=== PATIENT | male | born 1945 | race Caucasian/White ===

== ENCOUNTER → 2019-03-18 | Outpatient (CLI) | payer MEDICARE, OTHER ==
--- NOTE | 2019-03-19 11:17 | ECHOF ---
Referral Reason:I10 Hypertension MEASUREMENTS -------- HEIGHT: 182.9 cm WEIGHT: 95.3 kg BP: RVIDd: 3.4 cm (< 3.3) IVSd: 1.0 cm (0.6 - 1.1) LVIDd: 4.4 cm (3.9 - 5.3) LVPWd: 1.2 cm (0.6 - 1.1) IVSs: 1.4 cm LVIDs: 2.7 cm LVPWs: 1.6 cm LAESV Index (A-L): 23.60 ml/m Ao Diam: 2.8 cm (2.0 - 3.7) AV Cusp: 2.0 cm (1.5 - 2.6) LA Diam: 4.4 cm (2.7 - 3.8) MV EXCURSION: 20.824 mm (> 18.000) MV EF SLOPE: 173 mm/s (70 - 150) EPSS: 0.3 cm MV E Momo: 1.41 m/s MV DecT: 242 ms MV A Momo: 0.41 m/s MV E/A Ratio: 3.40 RAP: 5.00 mmHg RVSP: 34.50 mmHg FINDINGS -------- Paced rhythm. Pacerwire seen in RV and RA. This was a technically good study. Pt had previous cabg The left ventricular size is normal. There is borderline concentric left ventricular hypertrophy. Overall left ventricular systolic function is low-normal with, an EF between 50 - 55 %. There is p aradoxical/dysynergic septal motion consistent with post-operative status. The right ventricle is mildly enlarged. Normal LA size by volume 22+/-6 ml/m2. The right atrial size is normal. Aortic valve is trileaflet and is mildly thickened. The mitral valve is normal. The mitral valve leaflets are mildly thickened. Mild mitral annular c alcification present. Mild mitral regurgitation is present. Moderate tricuspid regurgitation present. Right ventricular systolic pressure is normal at < 35 mmH g. There is no pulmonic regurgitation present. The aortic root size is normal. Normal inferior vena cava with normal inspiratory collapse consistent with estimated right atrial pre ssure of 5 mmHg. All pulmonary veins appear normal. CONCLUSIONS -------- 1. Paced rhythm. 2. Pacerwire seen in RV and RA. 3. This was a technically good study. 4. Pt had previous cabg 5. The left ventricular size is normal. 6. There is borderline concentric left ventricular hypertrophy. 7. Overall left ventricular systolic function is low-normal with, an EF between 50 - 55 %. 8. There is paradoxical/dysynergic septal motion consistent with post-operative status. 9. The right ventricle is mildly enlarged. 10. Normal LA size by volume 22+/-6 ml/m2. 11. The right atrial size is normal. 12. Aortic valve is trileaflet and is mildly thickened. 13. The mitral valve is normal. 14. The mitral valve leaflets are mildly thickened. 15. Mild mitral annular calcification present. 16. Mild mitral regurgitation is present. 17. Moderate tricuspid regurgitation present. 18. Right ventricular systolic pressure is normal at < 35 mmHg. 19. There is no pulmonic regurgitation present. 20. The aortic root size is normal. 21. Normal inferior vena cava with normal inspiratory collapse consistent with estimated right atrial pressure of 5 mmHg. 22. All pulmonary veins appear normal. [employer] SPECIALIST: Shayla Jacobson RDCS
== END | disposition home or self-care (01) ==
LOC: RADECHMAIN 15:24
PROVIDERS: ATTEND Family Medicine
DX: I11.9 Hypertensive heart disease without heart failure (principal); I08.1 Rheumatic disorders of both mitral and tricuspid valves; Z95.1 Presence of aortocoronary bypass graft
CPT/HCPCS: 93306

== ENCOUNTER 2021-05-12 07:12 | Day surgery (SDC) | payer MEDICARE ==
[2021-05-06 15:52] VITALS: BMI 30.1
[~2021-05-12 07:12] MED LIST: LACTATED RINGERS 1,000 ML IV SCH; LIDOCAINE 1% (10MG/ML) FOR IV START INTRADERMA PRN
[2021-05-12 07:47] LABS: Glucose,Whole Blood 168 mg/dL (75-99)
[2021-05-12 07:50] VITALS: TEMP 97
[2021-05-12] MEDS ORDERED: LIDOCAINE 1% INJ 10MG/ML (20 ML MDV) ONE (08:13)
[2021-05-12] MEDS ORDERED: PROPOFOL 10 MG/ML 20 ML VIAL IV ONE (08:13)
--- NOTE | 2021-05-12 08:19 | P.GSHP ---
History of Present Illness H&P Date: 05/12/21 CHIEF COMPLAINT: Colon screen HISTORY OF PRESENT ILLNESS: The patient is a 76-year-old male with prior history of colonoscopy presents for comorbidities of chronic anticoagulation, hypertensive heart disease, diabetes type 2 [id number] who presents first time in consultation for colonoscopy. Last colonoscopy was over 10 years ago. Lower endoscopy was offered for further evaluation and management. PAST MEDICAL HISTORY: Please see list. PAST SURGICAL HISTORY: Please see list. MEDICATIONS: Please see list. ALLERGIES: Please see list. SOCIAL HISTORY: No illicit drug use FAMILY HISTORY: No reports of Crohn disease or ulcerative colitis. REVIEW OF ORGAN SYSTEMS: CONSTITUTIONAL: Denies any fever or chills. Denies recent weight loss or weight gain. HEENT: Denies any trouble with vision, hearing or nosebleeds. No difficulty swallowing. LYMPHATIC: The patient denies any lumps and bumps around the neck. ENDOCRINE: Denies any thyroid disorders. Has diabetes type 2, not on medications. RESPIRATORY: Denies pneumonia. Denies any troubles with breathing or dyspnea on exertion. CARDIOVASCULAR: Has hypertensive heart disease including chronic anticoagulation. Has atrial fibrillation and has history of atrial flutter. GASTROINTESTINAL: Denies heart burn, constipation or bright red blood per rectum. GENITOURINARY: Denies any blood in urine or increased urinary frequency. MUSCULOSKELETAL: Denies any back pain, stiffness, joint arthritis. NEUROLOGIC: Denies any numbness or tingling along the distal extremities. No seizure disorders or headaches. Past history of cerebrovascular accident. PSYCHIATRIC: Denies depression or suidical ideation. HEMATOLOGIC: Denies any abnormal bleeding or bruising. BREASTS: Denies any breast lumps, pain or nipple discharge. PHYSICAL EXAM: VITAL SIGNS: Stable GENERAL: Well-developed pleasant in no acute distress. HEENT: No scleral icterus. Extraocular movements grossly intact. Moist buccal mucosa. NECK: Supple without lymphadenopathy. CHEST: Unlabored respirations. Equal bilateral excursions. CARDIOVASCULAR: Regular rate and rhythm. Distal 2+ pulses. ABDOMEN: Soft, nontender, nondistended. MUSCULOSKELETAL: No clubbing, cyanosis, or edema. PSYCH: Alert and oriented to person place and time SKIN: Well perfused. Good skin turgor. ASSESSMENT: 1. Colonoscopy screening 2. Chronic anticoagulation 3. Hypertensive heart disease PLAN: 1. Colonoscopy per screening guidelines however patient high risk due to chronic and circulation pre-existing heart disease Past Medical History Past Medical History: Coronary Artery Disease (CAD), CVA/TIA, Hyperlipidemia, Sleep Apnea/CPAP/BIPAP Additional Past Medical History / Comment(s): stroke 15 yrs ago-no residual effects, no cpap used, History of Any Multi-Drug Resistant Organisms: None Reported Past Surgical History: Coronary Bypass/CABG, Orthopedic Surgery, Pacemaker, Tonsillectomy Additional Past Surgical History / Comment(s): left shoulder surgery, CABG 15 yr ago, evelyn cataracts Past Anesthesia/Blood Transfusion Reactions: No Reported Reaction Type of Cardiac Device: Permanent Pacemaker Device Placement Date:: Smoking Status: Former smoker - Past Family History Mother Family Medical History: No Reported History Medications and Allergies Home Medications Medication Instructions Recorded Confirmed Type Canagliflozin [Invokana] 300 mg PO HS 05/06/21 05/12/21 History Metoprolol Succinate [Toprol XL] 25 mg PO 1200 05/06/21 05/12/21 History Metoprolol Succinate [Toprol XL] 50 mg PO HS 05/06/21 05/12/21 History Rivaroxaban [Xarelto] 20 mg PO HS 05/06/21 05/12/21 History Simvastatin [Zocor] 40 mg PO HS 05/06/21 05/12/21 History Allergies Allergy/AdvReac Type Severity Reaction Status Date / Time No Known Allergies Allergy Verified 05/12/21 07:28 Surgical - Exam Vital Signs Temp Pulse Resp BP Pulse Ox 97.0 F L 60 16 130/64 100 05/12/21 07:49 05/12/21 07:49 05/12/21 07:49 05/12/21 07:49 05/12/21 07:49 Results - Labs Abnormal Lab Results - Last 24 Hours (Table) 05/12/21 Range/Units 07:42 POC Glucose (mg/dL) 168 H (75-99) mg/dL
--- NOTE | 2021-05-12 08:42 | P.PCN ---
Date of Procedure: 05/12/21 Description of Procedure: PREOPERATIVE DIAGNOSIS: Colonoscopy screening POSTOPERATIVE DIAGNOSIS: Colonoscopy screening Tubular adenoma ascending colon Tubular adenoma ascending colon Sigmoid diverticulosis Internal hemorrhoids, grade 2 OPERATION: Colonoscopy to the ileocecal valve and appendiceal orifice, cecum Colonoscopy with hot snare polypectomy SURGEON: Aliyah Moran MD. ANESTHESIA: MAC. INDICATIONS: The patient is an 76-year-old male who presents for colonoscopy screening. Last colonoscopy over 10 years ago. Benefits and risks were described and informed consent was obtained. DESCRIPTION OF PROCEDURE: The patient had undergone Sutab prep. The patient had been brought into the operating room and laid in the left lateral decubitus position. After adequate intravenous sedation, the rectum was examined with 2% lidocaine jelly. The prostate fossa was enlarged. External hemorrhoids were encountered. The rectal tone was within normal limits. No lesions were palpated in the rectal vault. An Olympus colonoscope was advanced until the cecum, ileocecal valve and appendiceal orifice were clearly viewed. The prep was fair. Sigmoid diverticulosis was encountered. Colonic polyps were found and removed. No evidence of focal colitis was found. Retroflexion of the scope demonstrated grade 2 internal hemorrhoids without active bleeding or inflammation. The colon was desufflated. The patient had tolerated the procedure well. Withdrawal time was over 6 minutes. FINDINGS: Aronchick preparation quality scale 3 (1-5) Internal hemorrhoids, grade 2 External hemorrhoids, grade 2. No arteriovenous malformations. Sigmoid diverticulosis Removal of 3 polyps: - Snare polypectomy 60 cm from the anal verge, 8 mm tubulovillous adenoma polyp. - Snare polypectomy proximal ascending colon, 4 mm flat villous adenoma polyp. - Snare polypectomy distal ascending colon, 5 mm flat villous adenoma polyp. No focal colitis. RECOMMENDATIONS: Given severity of tubular adenomas, recommend repeat colonoscopy in 3 years, 2023 including 3 day bowel prep Plan - Discharge Summary New Discharge Prescriptions: Continue Simvastatin [Zocor] 40 mg PO HS Rivaroxaban [Xarelto] 20 mg PO HS Metoprolol Succinate [Toprol XL] 25 mg PO 1200 Canagliflozin [Invokana] 300 mg PO HS Metoprolol Succinate [Toprol XL] 50 mg PO HS Discharge Medication List Canagliflozin [Invokana] 300 mg PO HS 05/06/21 [History] Metoprolol Succinate [Toprol XL] 25 mg PO 1200 05/06/21 [History] Metoprolol Succinate [Toprol XL] 50 mg PO HS 05/06/21 [History] Rivaroxaban [Xarelto] 20 mg PO HS 05/06/21 [History] Simvastatin [Zocor] 40 mg PO HS 05/06/21 [History] Follow up Appointment(s)/Referral(s): Aliyah Moran MD [STAFF PHYSICIAN] - As Needed Patient Instructions/Handouts: Colorectal Polyps (GEN), Diverticulosis Diet (GEN), Diverticulosis (DC) Activity/Diet/Wound Care/Special Instructions: Resume blood thinner 05/15/2021 on Monday. Repeat colonoscopy 3 years, 2023. Recommend at least 3 day bowel prep. Discharge Disposition: HOME SELF-CARE
[2021-05-12 08:55] VITALS: RESP 16
[2021-05-12 09:13] VITALS: BP 118/65; PULSE 60
== END 2021-05-12 09:23 | disposition home or self-care (01) ==
LOC: ORWHC2ENDO 07:12
PROVIDERS: ATTEND Surgery Plastic and Reconstructive Surgery
DX: Z12.11 Encounter for screening for malignant neoplasm of colon (principal); K57.90 Diverticulosis of intestine, part unspecified, without perforation or abscess without bleeding; K64.1 Second degree hemorrhoids; Z86.010 Personal history of colon polyps; D12.2 Benign neoplasm of ascending colon; I25.10 Atherosclerotic heart disease of native coronary artery without angina pectoris; E78.5 Hyperlipidemia, unspecified; Z95.1 Presence of aortocoronary bypass graft; Z95.0 Presence of cardiac pacemaker; Z86.73 Personal history of transient ischemic attack (TIA), and cerebral infarction without residual deficits; Z87.891 Personal history of nicotine dependence; Z79.899 Other long term (current) drug therapy; Z79.01 Long term (current) use of anticoagulants; G47.33 Obstructive sleep apnea (adult) (pediatric)
CPT/HCPCS: 88305; 45385; J2001; J2704

== ENCOUNTER → 2021-10-26 | Outpatient (CLI) | payer MEDICARE ==
[2021-10-27 13:28] LABS: Coronavirus SARS CoV-2 Not Detected (Not Detected)
== END | disposition home or self-care (01) ==
LOC: LABWHC1 14:20
PROVIDERS: ATTEND Family Medicine
DX: Z20.822 Contact with and (suspected) exposure to COVID-19 (principal); J06.9 Acute upper respiratory infection, unspecified
CPT/HCPCS: 87502; U0003; C9803

== ENCOUNTER 2021-12-13 11:58 | Day surgery (SDC) | payer MEDICARE ==
[2021-12-09 09:52] VITALS: BMI 27.5
[~2021-12-13 11:58] MED LIST changes: -LIDOCAINE 1% (10MG/ML) FOR IV START INTRADERMA PRN
[2021-12-13 12:15] VITALS: TEMP 97.9
[2021-12-13 12:34] LABS: Glucose,Whole Blood 139 mg/dL (75-99)
[2021-12-13] MEDS ORDERED: PROPOFOL 10 MG/ML 20 ML VIAL IV ONE (12:34)
[2021-12-13 13:34] VITALS: BP 109/63; PULSE 60; RESP 18
[2021-12-13 14:13] LABS: Anisocytosis Slight; HCT 28.3 % (39.0-53.0); HGB 8.7 gm/dL (13.0-17.5); Hypochromasia Marked; MCH 35.6 pg (25.0-35.0); MCHC 30.9 g/dL (31.0-37.0); MCV 115.2 fL (80.0-100.0); Macrocytosis Marked; Platelet Count 111 k/uL (150-450); Poikilocytosis Moderate; RBC 2.45 m/uL (4.30-5.90); RDW 19.7 % (11.5-15.5); Reticulocyte % 3.7 % (0.5-2.0)
[2021-12-13 14:51] LABS: WBC 1.2 k/uL (3.8-10.6)
[2021-12-13 15:36] LABS: Neutrophils % (M) 18 %
[2021-12-13 15:37] LABS: Eosinophils # (M) 0.04 k/uL (0-0.7); Lymphocytes # (M) 0.86 k/uL (1.0-4.8); Monocytes # (M) 0.08 k/uL (0-1.0); Neutrophils # (M) 0.22 k/uL (1.3-7.7); Nucleated Red Blood Cells 1 /100 WBC (0-0); Total Cells Counted 100
[2021-12-13 15:40] LABS: Polychromasia Present
--- NOTE | 2021-12-13 18:22 | PCN ---
PROCEDURE NOTE DATE OF SERVICE: December 13, 2021. PROCEDURE: Bone marrow aspirate and biopsy. INDICATION: Severe pancytopenia, rule out ACUTE MYELOID LEUKEMIA. DESCRIPTION OF PROCEDURE: After obtaining consent from the patient, the procedure was performed in the endoscopy suite under general anesthesia performed by anesthesia team. The patient was put in the left lateral decubitus position. The right posterior superior iliac crest was localized. Skin was cleansed with ChloraPrep, all sterile procedures were followed. 2% Xylocaine was used for local anesthetic. Monoject needle inserted 15 mL of aspirate and about 2 cm core biopsy was obtained without any difficulties. Pressure applied afterwards. There was negligible blood loss. Patient tolerated procedure very well without any immediate complications. MMODL / IJN: [id number] /
== END 2021-12-13 14:01 | disposition home or self-care (01) ==
LOC: OR 11:58
PROVIDERS: ATTEND Internal Medicine Hematology & Oncology
DX: D64.89 Other specified anemias (principal); D75.9 Disease of blood and blood-forming organs, unspecified; D69.6 Thrombocytopenia, unspecified; E11.9 Type 2 diabetes mellitus without complications; E78.5 Hyperlipidemia, unspecified; Z98.49 Cataract extraction status, unspecified eye; Z95.0 Presence of cardiac pacemaker; Z95.1 Presence of aortocoronary bypass graft; Z98.890 Other specified postprocedural states; Z86.19 Personal history of other infectious and parasitic diseases; Z79.01 Long term (current) use of anticoagulants; Z79.899 Other long term (current) drug therapy; Z87.891 Personal history of nicotine dependence; I25.10 Atherosclerotic heart disease of native coronary artery without angina pectoris; I10 Essential (primary) hypertension; G47.33 Obstructive sleep apnea (adult) (pediatric); Z86.73 Personal history of transient ischemic attack (TIA), and cerebral infarction without residual deficits
CPT/HCPCS: 85025; 85045; 38222; J2704

== ENCOUNTER → 2022-04-08 | Outpatient (CLI) | payer MEDICARE ==
--- NOTE | 2022-04-10 11:00 | CA ---
Transthoracic Echo Report Name: Mason Pena Age: 77 Gender: M : 1945 Exam Date: 04/08/2022 13:52 Exam Location: [facility] Ht (in): 72 Wt (lb): 200 Ordering Physician: Mason Barnes MD Attending/Referring Phys: Regional Medical Director Summer Doyle RDCS Procedure CPT: Indications: I25.10 ATHSCL HEART DISEASE OF [place] RESERVATION CORONARY ART Cardiac Hx: Technical Quality: Good Contrast 1: Total Dose (mL): Contrast 2: Total Dose (mL): MEASUREMENTS (Male / Female) Normal Values 2D ECHO LV Diastolic Diameter PLAX 4.3 cm 4.2 - 5.9 / 3.9 - 5.3 cm LV Systolic Diameter PLAX 3.6 cm IVS Diastolic Thickness 0.9 cm 0.6 - 1.0 / 0.6 - 0.9 cm LVPW Diastolic Thickness 1.7 cm 0.6 - 1.0 / 0.6 - 0.9 cm LV Relative Wall Thickness 0.6 RV Internal Dim ED PLAX 3.6 cm LA Systolic Diameter LX 6.1 cm 3.0 - 4.0 / 2.7 - 3.8 cm LA Volume 112.0 cm??? 18 - 58 / 22 - 52 cm??? M-MODE Aortic Root Diameter MM 3.0 cm LA Systolic Diameter MM 5.4 cm LA Ao Ratio MM 1.8 MV E Point Septal Separation 0.3 cm AV Cusp Separation MM 1.5 cm DOPPLER MV Area PHT 5.1 cm??? Mitral E Point Velocity 136.3 cm/s Mitral A Point Velocity 58.2 cm/s Mitral E to A Ratio 2.3 MV Deceleration Time 147.8 ms MV E' Velocity 7.4 cm/s Mitral E to MV E' Ratio 18.3 TR Peak Velocity 322.0 cm/s TR Peak Gradient 41.5 mmHg Right Ventricular Systolic Press 46.5 mmHg FINDINGS Left Ventricle Normal left ventricular size, wall thickness, systolic function with no obvious regional wall motion abnormalities. Left ventricular ejection fraction is estimated to be low normal at 50% Right Ventricle The right ventricle is normal in size and function. Moderate pulmonary hypertension. Right Atrium The right atrium is normal in size. Left Atrium Severely increased left atrial diameter. Severely increased left atrial volume. Moderately increased left atrial area. Mitral Valve . structurally normal mitral valve. [id number] mitral regurgitation. Aortic Valve Trileaflet aortic valve. Aortic valve sclerosis. Tricuspid Valve Structurally normal tricuspid valve without significant stenosis. Pulmonic Valve Structurally normal pulmonic valve without significant stenosis. There is no pulmonic regurgitation. Pericardium Normal pericardium without effusion. Aorta Normal aortic root dimension. CONCLUSIONS Low-normal left ventricular systolic function with EF of 50% Moderate to severe mitral regurgitation Moderate to severe tricuspid regurgitation Previewed by: Dr. Nba Quevedo MD (Electronically Signed) Final Date: 10 April 2022 10:59
== END | disposition home or self-care (01) ==
LOC: RADECHMAIN 13:41
PROVIDERS: ATTEND Internal Medicine
DX: I08.1 Rheumatic disorders of both mitral and tricuspid valves (principal); I25.10 Atherosclerotic heart disease of native coronary artery without angina pectoris
CPT/HCPCS: 93306

== ENCOUNTER 2022-05-10 09:02 | Emergency (ER) | payer MEDICARE ==
[2022-05-10] MEDS ORDERED: SODIUM CHLORIDE 0.9% 1,000 ML IV STA (10:11)
--- NOTE | 2022-05-10 10:18 | ED ---
General Adult HPI - General Chief complaint: Recheck/Abnormal Lab/Rx Stated complaint: Sent for blood infusion,Abnormal labs Time Seen by Provider: 05/10/22 10:05 Source: patient, RN notes reviewed, old records reviewed Mode of arrival: ambulatory Limitations: no limitations - History of Present Illness Initial comments: This is a 77-year-old male, alert and oriented 4 that presents with his sent by doctor for hemoglobin of 4.7. Patient does have a history of myelodysplastic syndrome diagnosed in December this year. Was going through testing for bone marrow transplant however due to his low hemoglobin was sent to the emergency room. He does have some shortness of breath but denies any chest pain. No fevers, no nausea, vomiting or diarrhea. Denies any rectal bleeding. Patient does have history of coronary artery disease with CABG, pacemaker, CVA, NIDDM and hypertension. He does take Xarelto. -: days(s) Severity scale (1-10): 0 Associated Symptoms: denies other symptoms Treatments Prior to Arrival: other (labs) - Related Data Home Medications Medication Instructions Recorded Confirmed Canagliflozin [Invokana] 300 mg PO HS 05/06/21 12/09/21 Metoprolol Succinate [Toprol XL] 25 mg PO 1200 05/06/21 12/09/21 Metoprolol Succinate [Toprol XL] 50 mg PO HS 05/06/21 12/09/21 Rivaroxaban [Xarelto] 20 mg PO HS 05/06/21 12/09/21 Simvastatin [Zocor] 40 mg PO HS 05/06/21 12/09/21 Dulaglutide [Trulicity] 0.75 mg SQ DENNIS 12/09/21 12/09/21 Dulaglutide [Trulicity] 0.75 mg SQ DENNIS 12/09/21 12/09/21 Allergies Allergy/AdvReac Type Severity Reaction Status Date / Time No Known Allergies Allergy Verified 05/10/22 09:12 Review of Systems ROS Statement: Those systems with pertinent positive or pertinent negative responses have been documented in the HPI. ROS Other: All systems not noted in ROS Statement are negative. Past Medical History Past Medical History: Coronary Artery Disease (CAD), CVA/TIA, Hyperlipidemia, Sleep Apnea/CPAP/BIPAP Additional Past Medical History / Comment(s): MDS History of Any Multi-Drug Resistant Organisms: None Reported Past Surgical History: Coronary Bypass/CABG, Orthopedic Surgery, Pacemaker, Tonsillectomy Additional Past Surgical History / Comment(s): left shoulder surgery, CABG 15 yr ago, evelyn cataracts Past Anesthesia/Blood Transfusion Reactions: No Reported Reaction Type of Cardiac Device: Permanent Pacemaker Device Placement Date:: Past Psychological History: No Psychological Hx Reported Smoking Status: Former smoker Past Alcohol Use History: Rare Past Drug Use History: None Reported - Past Family History Mother Family Medical History: No Reported History General Exam Limitations: no limitations General appearance: alert, in no apparent distress Head exam: Present: atraumatic Eye exam: Present: PERRL, other (Pale conjunctiva). Absent: conjunctival injection, periorbital swelling, periorbital tenderness ENT exam: Present: mucous membranes moist Neck exam: Present: normal inspection, full ROM. Absent: tenderness, meningismus Respiratory exam: Present: normal lung sounds bilaterally. Absent: respiratory distress, wheezes, rales, rhonchi, stridor, chest wall tenderness, accessory muscle use, decreased breath sounds Cardiovascular Exam: Present: regular rate GI/Abdominal exam: Present: soft. Absent: distended, tenderness Rectal exam: Present: normal rectal tone. Absent: black stool, bloody stool, mass, tenderness Extremities exam: Present: full ROM, normal capillary refill, pedal edema (Bilateral lower extremity). Absent: calf tenderness Left Lower Leg exam: Present: swelling, abrasion. Absent: Homans' sign Ankle exam: Present: swelling Foot/Toe exam: Present: swelling Neurovascular tendon exam: Absent: abnormal cap refill, extremity cold to touch, pallor, foot drop Right Lower Leg exam: Present: tenderness, swelling, abrasion. Absent: Homans' sign Ankle exam: Present: swelling Foot/Toe exam: Present: swelling Neurovascular tendon exam: Absent: abnormal cap refill, extremity cold to touch, foot drop Back exam: Present: normal inspection. Absent: tenderness, CVA tenderness (R), CVA tenderness (L), rash noted Neurological exam: Present: alert, oriented X3 Psychiatric exam: Present: normal affect, normal mood Skin exam: Present: warm, dry, pallor. Absent: cyanosis, diaphoretic Course Vital Signs 05/10/22 05/10/22 05/10/22 09:09 12:15 12:25 Temperature 97.6 F 98.8 F 98.3 F Pulse Rate 62 60 62 Respiratory 20 18 18 Rate Blood Pressure 104/50 90/44 97/47 O2 Sat by Pulse 97 95 Oximetry 05/10/22 12:55 Temperature 98.0 F Pulse Rate 77 Respiratory 18 Rate Blood Pressure 102/63 O2 Sat by Pulse Oximetry EKG Findings - CO, Pacemaker, Normal: Pacemaker: ventricular pacing w/capture (except when refractory) (Rate 64, QRS 0.174, QTC 0.525) Medical Decision Making - Medical Decision Making Patient sent by PCP for low hemoglobin. Hemoglobin is 4.9 hematocrit 17. Guiac positive. White blood cell count is 2.4 and platelet count is 74. Patient does have an history of MDS, and is seeing heme/oncology through [facility]. Hx: CAD, CABG, CVA, pacer. Takes Xeralto daily. He was given 1 unit of packed RBCs. He was transferred [facility] for GIB, accepted by Dr. Valderrama. VSS. Patient and agreeable to this plan of care. - Lab Data Result diagrams: 05/10/22 10:34 05/10/22 10:34 Lab Results 05/10/22 05/10/22 05/10/22 Range/Units 10:20 10:34 10:34 WBC 2.4 L (3.8-10.6) k/uL RBC 1.43 L (4.30-5.90) m/uL Hgb 4.9 L* (13.0-17.5) gm/dL Hct 17.0 L* (39.0-53.0) % MCV 118.7 H (80.0-100.0) fL MCH 34.0 (25.0-35.0) pg MCHC 28.6 L (31.0-37.0) g/dL RDW 22.2 H (11.5-15.5) % Plt Count 74 L (150-450) k/uL MPV 10.4 Neutrophils % (Manual) 39 % Band Neuts % (Manual) 1 % Lymphocytes % (Manual) 56 % Monocytes % (Manual) 1 % Eosinophils % (Manual) 1 % Metamyelocytes % 2 % Myelocytes % 3 % Neutrophils # (Manual) 0.90 L (1.3-7.7) k/uL Lymphocytes # (Manual) 1.34 (1.0-4.8) k/uL Monocytes # (Manual) 0.02 (0-1.0) k/uL Eosinophils # (Manual) 0.02 (0-0.7) k/uL Metamyelocytes # (Man) 0.05 H (0) k/uL Myelocytes # (Manual) 0.07 H (0) k/uL Nucleated RBCs 18 H (0-0) /100 WBC Manual Slide Review Performed Large Platelets Present Polychromasia Present Hypochromasia Marked Poikilocytosis Marked Anisocytosis Moderate Macrocytosis Marked A Stomatocytes Present PT 12.8 H (9.0-12.0) sec INR 1.2 H (<1.2) APTT 27.1 (22.0-30.0) sec Sodium (137-145) mmol/L Potassium (3.5-5.1) mmol/L Chloride (98-107) mmol/L Carbon Dioxide (22-30) mmol/L Anion Gap mmol/L BUN (9-20) mg/dL Creatinine (0.66-1.25) mg/dL Est GFR (CKD-EPI)AfAm (>60 ml/min/1.73 sqM) Est GFR (CKD-EPI)NonAf (>60 ml/min/1.73 sqM) Glucose (74-99) mg/dL Calcium (8.4-10.2) mg/dL Magnesium (1.6-2.3) mg/dL Total Bilirubin (0.2-1.3) mg/dL AST (17-59) U/L ALT (4-49) U/L Alkaline Phosphatase (38-126) U/L Troponin I (0.000-0.034) ng/mL Total Protein (6.3-8.2) g/dL Albumin (3.5-5.0) g/dL Stool Occult Blood (Negative) Blood Type A Positive Blood Type Confirm Blood Type Recheck No Previous Record Bld Type Recheck Status CABO Indicated Antibody Screen NEGATIVE Crossmatch See Detail Spec Expiration Date 05/13/2022 - 231905/10/22 05/10/22 05/10/22 Range/Units 10:34 10:34 10:34 WBC (3.8-10.6) k/uL RBC (4.30-5.90) m/uL Hgb (13.0-17.5) gm/dL Hct (39.0-53.0) % MCV (80.0-100.0) fL MCH (25.0-35.0) pg MCHC (31.0-37.0) g/dL RDW (11.5-15.5) % Plt Count (150-450) k/uL MPV Neutrophils % (Manual) % Band Neuts % (Manual) % Lymphocytes % (Manual) % Monocytes % (Manual) % Eosinophils % (Manual) % Metamyelocytes % % Myelocytes % % Neutrophils # (Manual) (1.3-7.7) k/uL Lymphocytes # (Manual) (1.0-4.8) k/uL Monocytes # (Manual) (0-1.0) k/uL Eosinophils # (Manual) (0-0.7) k/uL Metamyelocytes # (Man) (0) k/uL Myelocytes # (Manual) (0) k/uL Nucleated RBCs (0-0) /100 WBC Manual Slide Review Large Platelets Polychromasia Hypochromasia Poikilocytosis Anisocytosis Macrocytosis Stomatocytes PT (9.0-12.0) sec INR (<1.2) APTT (22.0-30.0) sec Sodium 136 L (137-145) mmol/L Potassium 3.8 (3.5-5.1) mmol/L Chloride 100 (98-107) mmol/L Carbon Dioxide 29 (22-30) mmol/L Anion Gap 7 mmol/L BUN 24 H (9-20) mg/dL Creatinine 1.04 (0.66-1.25) mg/dL Est GFR (CKD-EPI)AfAm 81 (>60 ml/min/1.73 sqM) Est GFR (CKD-EPI)NonAf 70 (>60 ml/min/1.73 sqM) Glucose 141 H (74-99) mg/dL Calcium 8.2 L (8.4-10.2) mg/dL Magnesium 1.6 (1.6-2.3) mg/dL Total Bilirubin 2.8 H (0.2-1.3) mg/dL AST 32 (17-59) U/L ALT 16 (4-49) U/L Alkaline Phosphatase 70 (38-126) U/L Troponin I <0.012 (0.000-0.034) ng/mL Total Protein 5.9 L (6.3-8.2) g/dL Albumin 2.9 L (3.5-5.0) g/dL Stool Occult Blood Positive (Negative) Blood Type Blood Type Confirm Blood Type Recheck Bld Type Recheck Status Antibody Screen Crossmatch Spec Expiration Date 05/10/22 Range/Units 10:35 WBC (3.8-10.6) k/uL RBC (4.30-5.90) m/uL Hgb (13.0-17.5) gm/dL Hct (39.0-53.0) % MCV (80.0-100.0) fL MCH (25.0-35.0) pg MCHC (31.0-37.0) g/dL RDW (11.5-15.5) % Plt Count (150-450) k/uL MPV Neutrophils % (Manual) % Band Neuts % (Manual) % Lymphocytes % (Manual) % Monocytes % (Manual) % Eosinophils % (Manual) % Metamyelocytes % % Myelocytes % % Neutrophils # (Manual) (1.3-7.7) k/uL Lymphocytes # (Manual) (1.0-4.8) k/uL Monocytes # (Manual) (0-1.0) k/uL Eosinophils # (Manual) (0-0.7) k/uL Metamyelocytes # (Man) (0) k/uL Myelocytes # (Manual) (0) k/uL Nucleated RBCs (0-0) /100 WBC Manual Slide Review Large Platelets Polychromasia Hypochromasia Poikilocytosis Anisocytosis Macrocytosis Stomatocytes PT (9.0-12.0) sec INR (<1.2) APTT (22.0-30.0) sec Sodium (137-145) mmol/L Potassium (3.5-5.1) mmol/L Chloride (98-107) mmol/L Carbon Dioxide (22-30) mmol/L Anion Gap mmol/L BUN (9-20) mg/dL Creatinine (0.66-1.25) mg/dL Est GFR (CKD-EPI)AfAm (>60 ml/min/1.73 sqM) Est GFR (CKD-EPI)NonAf (>60 ml/min/1.73 sqM) Glucose (74-99) mg/dL Calcium (8.4-10.2) mg/dL Magnesium (1.6-2.3) mg/dL Total Bilirubin (0.2-1.3) mg/dL AST (17-59) U/L ALT (4-49) U/L Alkaline Phosphatase (38-126) U/L Troponin I (0.000-0.034) ng/mL Total Protein (6.3-8.2) g/dL Albumin (3.5-5.0) g/dL Stool Occult Blood (Negative) Blood Type Blood Type Confirm A Positive Blood Type Recheck Bld Type Recheck Status Antibody Screen Crossmatch Spec Expiration Date Critical Care Time Critical Care Time: Yes Total Critical Care Time: 34 (blood transfusion, GIB, transfer) Disposition Clinical Impression: Anemia, GIB (gastrointestinal bleeding), MDS (myelodysplastic syndrome) Disposition: OTHER INSTITUTION NOT DEFINED Condition: Good Referrals: Nathanael Ellis MD [Primary Care Provider] - 1-2 days Decision Date: 05/10/22 - Out of Hospital Transfer - Req. Specs Out of Hospital Transfer - Requested Specifics: Other [facility] ([facility])
[2022-05-10 10:54] LABS: Anisocytosis Moderate; Hypochromasia Marked; MCHC 28.6 g/dL (31.0-37.0); MCV 118.7 fL (80.0-100.0); Macrocytosis Marked; Mean Platelet Volume 10.4; Poikilocytosis Marked; RBC 1.43 m/uL (4.30-5.90); RDW 22.2 % (11.5-15.5)
[2022-05-10 10:57] LABS: HGB 4.9 gm/dL (13.0-17.5)
[2022-05-10 10:58] LABS: Albumin 2.9 g/dL (3.5-5.0); Calcium 8.2 mg/dL (8.4-10.2); Magnesium 1.6 mg/dL (1.6-2.3); Potassium 3.8 mmol/L (3.5-5.1); Total Bilirubin 2.8 mg/dL (0.2-1.3); Total Protein 5.9 g/dL (6.3-8.2)
[2022-05-10 10:59] LABS: INR 1.2 (<1.2); Partial Thromboplastin Time 27.1 sec (22.0-30.0); Prothrombin Time 12.8 sec (9.0-12.0)
[2022-05-10 11:06] LABS: Platelet Count 74 k/uL (150-450)
[2022-05-10 11:13] LABS: Band Neutrophils % 1 %; Eosinophils # (M) 0.02 k/uL (0-0.7); Lymphocytes # (M) 1.34 k/uL (1.0-4.8); Metamyelocytes # (M) 0.05 k/uL (0); Metamyelocytes % 2 %; Monocytes # (M) 0.02 k/uL (0-1.0); Myelocytes # (M) 0.07 k/uL (0); Myelocytes % 3 %; Neutrophils % (M) 39 %; Nucleated Red Blood Cells 18 /100 WBC (0-0); Total Cells Counted 200; WBC 2.4 k/uL (3.8-10.6)
--- NOTE | 2022-05-10 11:13 | XR ---
EXAMINATION TYPE: XR chest 2V DATE OF EXAM: 05/10/2022 COMPARISON: Chest x-ray April 22, 2022 HISTORY: Chest pain. TECHNIQUE: Frontal and lateral views of the chest are obtained. FINDINGS: There is chronic parenchymal change bilaterally redemonstrated with persistent small right pleural effusion. The cardiac silhouette size is stable and mildly enlarged with single lead pacema ker redemonstrated. The osseous structures are intact. IMPRESSION: Chronic changes and cardiomegaly with small right pleural effusion. No significant wan e from prior chest x-ray.
[2022-05-10 11:14] LABS: Large Platelets Present; Polychromasia Present; Stomatocytes Present
[2022-05-10 12:17] VITALS: RESP 18
[2022-05-11 09:55] VITALS: BP 102/63; PULSE 77; TEMP 98
== END 2022-05-10 17:00 | disposition short-term general hospital (02) ==
LOC: EC 09:02
DX: K92.2 Gastrointestinal hemorrhage, unspecified (principal); D46.9 Myelodysplastic syndrome, unspecified; I25.10 Atherosclerotic heart disease of native coronary artery without angina pectoris; Z86.73 Personal history of transient ischemic attack (TIA), and cerebral infarction without residual deficits; E78.5 Hyperlipidemia, unspecified; Z87.891 Personal history of nicotine dependence; Z79.899 Other long term (current) drug therapy
CPT/HCPCS: 36415; 93005; 86900; 86901; 80053; 83735; 84484; 85025; 85610; 85730; 86850; 86920; 82272; 71046; 99291; 96360; 96361 ×6; P9016

== ENCOUNTER 2022-06-29 16:17 | Inpatient (IN) | payer MEDICARE ==
[2022-06-29] MEDS ORDERED: DIPH,PERTUS(ACELL)TETVAC-LF 0.5 ML VIAL IM ONE (17:14)
[2022-06-29] MEDS ORDERED: SODIUM CHLORIDE 0.9% 500 ML 500 ML IV ONE (17:14)
--- NOTE | 2022-06-29 17:19 | ED ---
General Adult HPI - General Chief complaint: Fall Stated complaint: fall, weakness Time Seen by Provider: 06/29/22 16:26 Source: patient, family, EMS, RN notes reviewed, old records reviewed Mode of arrival: EMS Limitations: no limitations - History of Present Illness Initial comments: 77-year-old male history of MDS presenting syncopal. Patient's states he did feel somewhat lightheaded believes he was only momentarily unconscious.. He was brought in by paramedics with skin tear to the left upper extremity, abrasion to the forehead. Some pain in the right clavicle. Patient denies any specific complaints. No chest pain or palpitations. - Related Data Home Medications Medication Instructions Recorded Confirmed Canagliflozin [Invokana] 300 mg PO HS 05/06/21 12/09/21 Metoprolol Succinate [Toprol XL] 25 mg PO 1200 05/06/21 12/09/21 Metoprolol Succinate [Toprol XL] 50 mg PO HS 05/06/21 12/09/21 Rivaroxaban [Xarelto] 20 mg PO HS 05/06/21 12/09/21 Simvastatin [Zocor] 40 mg PO HS 05/06/21 12/09/21 Dulaglutide [Trulicity] 0.75 mg SQ DENNIS 12/09/21 12/09/21 Dulaglutide [Trulicity] 0.75 mg SQ DENNIS 12/09/21 12/09/21 Allergies Allergy/AdvReac Type Severity Reaction Status Date / Time No Known Allergies Allergy Verified 06/29/22 16:25 Review of Systems ROS Statement: Those systems with pertinent positive or pertinent negative responses have been documented in the HPI. ROS Other: All systems not noted in ROS Statement are negative. Past Medical History Past Medical History: Coronary Artery Disease (CAD), CVA/TIA, Hyperlipidemia, Sleep Apnea/CPAP/BIPAP Additional Past Medical History / Comment(s): MDS History of Any Multi-Drug Resistant Organisms: None Reported Past Surgical History: Coronary Bypass/CABG, Orthopedic Surgery, Pacemaker, Tonsillectomy Additional Past Surgical History / Comment(s): left shoulder surgery, CABG 15 yr ago, evelyn cataracts Past Anesthesia/Blood Transfusion Reactions: No Reported Reaction Type of Cardiac Device: Permanent Pacemaker Device Placement Date:: Past Psychological History: No Psychological Hx Reported Smoking Status: Former smoker Past Alcohol Use History: Rare Past Drug Use History: None Reported - Past Family History Mother Family Medical History: No Reported History General Exam Limitations: no limitations General appearance: alert, in no apparent distress Head exam: Present: other (Abrasion over the bridge of the nose and forehead) Eye exam: Present: PERRL Neck exam: Present: normal inspection. Absent: tenderness, meningismus Respiratory exam: Present: normal lung sounds bilaterally, other (Bony prominence over the midclavicular right side). Absent: respiratory distress Cardiovascular Exam: Present: regular rate, normal rhythm GI/Abdominal exam: Present: soft. Absent: distended, tenderness, guarding Extremities exam: Present: other (Multiple abrasions and skin tear to the left upper extremity) Neurological exam: Present: alert, oriented X3, CN II-XII intact. Absent: motor sensory deficit Psychiatric exam: Present: normal affect, normal mood Skin exam: Present: warm Course Vital Signs 06/29/22 16:19 Temperature 99.0 F Pulse Rate 60 Respiratory 16 Rate Blood Pressure 131/51 O2 Sat by Pulse 98 Oximetry EKG Findings - EKG Comments: EKG Findings:: EKG: Paced rhythm rate of 60, QRS duration 169, QTC 512 Medical Decision Making - Medical Decision Making 77-year-old male with myelodysplastic syndrome presenting with syncopal episode. Patient did have head trauma, CT was performed was negative for intracranial hemorrhage there was multiple old infarcts with encephalomalacia. Patient is leukopenic and anemic with hemoglobin of 6.0. He does state that his baseline hemoglobin is around 7. He denies rectal bleeding. I did transfuse 1 unit of packed RBCs. The patient will be observed overnight. Admitted to [facility] with him pathology on consult. - Lab Data Result diagrams: 06/29/22 17:15 06/29/22 17:15 Lab Results 06/29/22 06/29/22 Range/Units 17:15 17:15 WBC 1.2 L* (3.8-10.6) k/uL RBC 1.90 L (4.30-5.90) m/uL Hgb 6.0 L* (13.0-17.5) gm/dL Hct 19.0 L* (39.0-53.0) % MCV 99.6 D (80.0-100.0) fL MCH 31.5 (25.0-35.0) pg MCHC 31.7 (31.0-37.0) g/dL RDW 20.9 H (11.5-15.5) % Plt Count 63 L (150-450) k/uL MPV 10.5 Neutrophils % (Manual) 22 % Band Neuts % (Manual) 3 % Lymphocytes % (Manual) 76 % Metamyelocytes % 1 % Neutrophils # (Manual) 0.30 L* (1.3-7.7) k/uL Lymphocytes # (Manual) 0.91 L (1.0-4.8) k/uL Metamyelocytes # (Man) 0.01 H (0) k/uL Nucleated RBCs 6 H (0-0) /100 WBC Manual Slide Review Performed Polychromasia Present Hypochromasia Marked Poikilocytosis Marked Anisocytosis Moderate Macrocytosis Moderate Sodium 134 L (137-145) mmol/L Potassium 3.5 (3.5-5.1) mmol/L Chloride 98 (98-107) mmol/L Carbon Dioxide 24 (22-30) mmol/L Anion Gap 12 mmol/L BUN 21 H (9-20) mg/dL Creatinine 1.00 (0.66-1.25) mg/dL Est GFR (CKD-EPI)AfAm 85 (>60 ml/min/1.73 sqM) Est GFR (CKD-EPI)NonAf 73 (>60 ml/min/1.73 sqM) Glucose 162 H (74-99) mg/dL Calcium 8.4 (8.4-10.2) mg/dL Total Bilirubin 3.5 H (0.2-1.3) mg/dL AST 30 (17-59) U/L ALT 14 (4-49) U/L Alkaline Phosphatase 66 (38-126) U/L Total Protein 6.6 (6.3-8.2) g/dL Albumin 3.4 L (3.5-5.0) g/dL Disposition Clinical Impression: Syncope, Anemia Disposition: ADMITTED IP TO THIS HOSP Condition: Stable Is patient prescribed a controlled substance at d/c from ED?: No Referrals: Nathanael Ellis MD [Primary Care Provider] - 1-2 days Time of Disposition: 19:32
[2022-06-29 18:02] LABS: Albumin 3.4 g/dL (3.5-5.0); Calcium 8.4 mg/dL (8.4-10.2); Potassium 3.5 mmol/L (3.5-5.1); Total Bilirubin 3.5 mg/dL (0.2-1.3); Total Protein 6.6 g/dL (6.3-8.2)
[2022-06-29 18:03] LABS: Anisocytosis Moderate; Hypochromasia Marked; MCH 31.5 pg (25.0-35.0); MCHC 31.7 g/dL (31.0-37.0); MCV 99.6 fL (80.0-100.0); Macrocytosis Moderate; Mean Platelet Volume 10.5; Poikilocytosis Marked; RDW 20.9 % (11.5-15.5)
[2022-06-29 18:05] LABS: Platelet Count 63 k/uL (150-450)
--- NOTE | 2022-06-29 18:07 | CT ---
EXAMINATION TYPE: CT brain adam olguin DATE OF EXAM: 06/29/2022 COMPARISON: None HISTORY: fall, multiple head LACs CT DLP: 1479.2 mGycm Automated exposure control for dose reduction was used. Images of the brain and cervical spine obtained with no contrast. There is 4 cm irregular area of hypodensity in the inferior left cerebellar hemisphere consistent wit h an old infarct. There is similar irregular 4 cm hypodensity left posterior temporal lobe and 3.5 cm hypodensity right posterior temporal lobe related to old infarcts. There is no mass effect or midlin e shift. No sign of intracranial hemorrhage. The calvarium is intact. There is opacification of most of the left maxillary sinus. There is some ethmoid sinus mucosal thickening. Cervical vertebra have normal alignment. There is degenerative disc space narrowing at C5-6 and C6-7 with spurring of the endplates. No compression fracture. Facet joints are intact. IMPRESSION: Multiple old infarcts. Cerebral atrophy. No acute intracranial abnormality. Left maxillary sinusitis and ethmoid sinusitis. Spondylotic changes in the lower cervical spine. No fracture.
[2022-06-29 18:22] LABS: Band Neutrophils % 3 %; Metamyelocytes % 1 %
[2022-06-29 18:23] LABS: Metamyelocytes # (M) 0.01 k/uL (0)
--- NOTE | 2022-06-29 18:23 | XR ---
EXAMINATION TYPE: XR chest 2V DATE OF EXAM: 06/29/2022 COMPARISON: 05/10/2022 HISTORY: Fall. Chest pain TECHNIQUE: 2 views FINDINGS: There is coarse interstitial densities in the lungs. There is left axillary pacemaker. No p leural effusion. There are no hilar masses. IMPRESSION: There is some pulmonary interstitial edema similar to old exam no pleural fluid seen to s uggest heart failure. This could be chronic interstitial pneumonia.
[2022-06-29 18:24] LABS: Neutrophils % (M) 22 %
[2022-06-29 18:26] LABS: Lymphocytes # (M) 0.91 k/uL (1.0-4.8); Nucleated Red Blood Cells 6 /100 WBC (0-0); Polychromasia Present; Total Cells Counted 200; WBC 1.2 k/uL (3.8-10.6)
[2022-06-29] MEDS ORDERED: NALOXONE 0.4 MG/ML 1 ML VIAL IV PRN (19:29)
[2022-06-29] MEDS: SODIUM CHLORIDE 0.9% 1,000 ML IV SCH (23:00)
[2022-06-30 00:54] LABS: Appearance,Urine Clear (Clear); Bilirubin,Urine Negative (Negative); Blood,Urine Negative (Negative); Color,Urine Yellow; Glucose,Urine (UA) Negative (Negative); Ketones,Urine Negative (Negative); Leukocyte Esterase,Urine Negative (Negative); Mucus,Urine Occasional /hpf; Nitrite,Urine Negative (Negative); PH, Urine 5.5 (5.0-8.0); Protein,Urine 1+ (Negative); RBC,Urine <1 /hpf (0-5); Squamous Epithelial Cell,Urine <1 /hpf (0-4); WBC,Urine 1 /hpf (0-5)
[2022-06-30 06:18] LABS: Glucose,Whole Blood 177 mg/dL (70-110)
[2022-06-30] MEDS ORDERED: DEXTROSE 50% SYRINGE 50 ML IVP PRN ×2 (09:31)
[2022-06-30] MEDS: HYDROcodone/APAP 5-325MG 1 EACH TAB PO PRN ×2 (10:58→17:57)
[2022-06-30 11:00] LABS: African American GFR (CKD) >90 (>60 ml/min/1.73 sqM); Anion Gap 11 mmol/L; Blood Urea Nitrogen 23 mg/dL (9-20); Calcium 8.1 mg/dL (8.4-10.2); Carbon Dioxide 23 mmol/L (22-30); Chloride 102 mmol/L (98-107); Glucose 146 mg/dL (74-99); Non-African American GFR(CKD) 83 (>60 ml/min/1.73 sqM); Potassium 3.7 mmol/L (3.5-5.1); Sodium 136 mmol/L (137-145)
[2022-06-30 11:20] LABS: Anisocytosis Moderate; HCT 20.4 % (39.0-53.0); Hypochromasia Marked; MCH 32.1 pg (25.0-35.0); MCHC 32.4 g/dL (31.0-37.0); Macrocytosis Moderate; Mean Platelet Volume 10.1; Poikilocytosis Marked; RBC 2.06 m/uL (4.30-5.90); RDW 20.4 % (11.5-15.5)
[2022-06-30 11:29] LABS: HGB 6.6 gm/dL (13.0-17.5)
[2022-06-30 11:30] LABS: Platelet Count 56 k/uL (150-450)
[2022-06-30 11:59] LABS: Glucose,Whole Blood 166 mg/dL (70-110)
[2022-06-30] MEDS: INSULIN ASPART (NovoLOG) 100 UNIT/ML VIAL SQ SCH ×3 (12:02→20:08)
[2022-06-30] MEDS: SODIUM CHLORIDE 0.9% 1,000 ML IV SCH ×2 (12:02→23:52)
[2022-06-30 12:31] VITALS: BMI 25.1
[2022-06-30 13:18] LABS: Band Neutrophils % 3 %; Metamyelocytes # (M) 0.02 k/uL (0); Metamyelocytes % 1 %; Myelocytes # (M) 0.02 k/uL (0); Myelocytes % 1 %; Neutrophils % (M) 39 %; Nucleated Red Blood Cells 6 /100 WBC (0-0); Total Cells Counted 200
[2022-06-30 13:19] LABS: Lymphocytes # (M) 0.97 k/uL (1.0-4.8); Monocytes # (M) 0.13 k/uL (0-1.0); WBC 1.9 k/uL (3.8-10.6)
[2022-06-30 13:20] LABS: Polychromasia Present
--- NOTE | 2022-06-30 15:04 | XR ---
EXAMINATION TYPE: XR shoulder complete 3 views RT, XR clavicle 2 views RT DATE OF EXAM: 06/30/2022 Comparison: None Clinical History: 77-year-old male pain after fall with trauma Findings: Clavicle: Slightly prominent AC joint space at 7 mm there is marginal spurring is present. Mild overlying soft tissue swelling. No abnormal widening of the coracoclavicular distance. No acute fracture is seen. Right shoulder: Overlying folds causing external artifacts. There is linear lucency projecting along the inferior bod y of the scapula on the scapular Y view. No additional acute fracture, subluxation, or dislocation is seen. Impression (clavicle and right shoulder): 1. Some soft tissue swelling overlying the AC joint and slight joint space widening at 7 mm. No abnor mal offset at the joint. Correlate for possible low-grade AC joint sprain. 2. Linear lucency projecting along the inferior body of the scapula on the scapular Y view of the [facility]. This may be projectional. Unable to adequately exclude a fracture of the inferior scapula. If pain localizes to this region, dedicated scapular views can be performed.
[2022-06-30 16:47] LABS: Glucose,Whole Blood 144 mg/dL (70-110)
--- NOTE | 2022-06-30 17:57 | P.HPIM ---
History of Present Illness H&P Date: 06/30/22 This is a 77-year-old male history of myelodysplastic syndrome, stroke, hyperlipidemia, sleep apnea, Carotid artery disease with bypass which was "on an artery that runs down his left neck", atrial fibrillation, pacemaker in 2016. 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 He has not had open heart surgery as per the recording medical history. Presenting with complaints of lightheadedness and syncopal episode with momentary loss of consciousness. Patient states he was walking up steps felt lightheaded and fell, it was unwitnessed and awoke on the ground. He denies diaphoresis, chest pain, shortness of breath prior and states he had just been hanging out around the house. No strenuous activity prior. He is brought in by paramedics he did sustain a skin tear to his left upper extremity and abrasion on his forehead. There is some pain in the right clavicle and also right shoulder with limited range of motion. Patient had a CT of the brain and C-spine showing multiple old infarcts and cerebral atrophy left maxillary sinusitis and ethmoid sinusitis or spondylitic changes in the lower cervical spine with no fracture. Chest x-ray showing pulmonary interstitial edema similar to old exam with no pleural fluid seen to suggest heart failure, possibly chronic interstitial pneumonia. EKG shows a ventricular pacemaker heart rate in the 60s. He presents with a white count of 1.2, hemoglobin 6.0, h ematocrit 19.0, neutrophils of 0.30, platelet count of 63. He has also sodium level 136, BUN 21, creatinine 1.00, albumin 3.4. Glucose is elevated at 177. Urine is showing 1+ protein with occasional mucus not suggestive of any urinary tract infection. He was admitted to the hospital with a consult with oncology/hematology services for further evaluation. Patient received 1 unit of packed red blood cells for hemoglobin of 6.0. He states he was diagnosed with MDS back in December through routine health screenings and was evaluated by oncology outpatient, follows with Dr. Whittaker. Was sent to the ER in back in may from hematology for low hemoglobin found in his work up for bone marrow biopsy which per he is not a candidate for bone marrow biopsy, which at that time was 4.9 and [facility]. Patient states it was from "bleeding to much" although he denies rectal bleeding, hemetemesis. Per the patients he had significant nose bleeds which is a reason why he came off of the xarelto. The states he got 5 units of blood and 2 units of platelets there and did not get scoped. Had a previous colonoscopy in January of this year and there were no acute findings per . Was discharged with hemoglobin around 6 which per is his baseline. He is somewhat of a poor historian unable to give the reason for being on the blood thinner. His syncopal episode is most likely from the anemia, orthostatics will be checked and his pacemaker will be interrogated for further investigation. Patients would like to speak with palliative care. Patient and family are denying transfer for GI and also to see surgical services for further evalauation to rule out GI bleed. REVIEW OF SYSTEMS: CONSTITUTIONAL: No fever, no malaise, no fatigue. HEENT: No recent visual problems or hearing problems. Denied any sore throat. CARDIOVASCULAR: No chest pain, orthopnea, PND, no palpitations, no syncope. PULMONARY: No shortness of breath, no cough, no hemoptysis. GASTROINTESTINAL: No diarrhea, no nausea, no vomiting, no abdominal pain. NEUROLOGICAL: No headaches, no weakness, no numbness. HEMATOLOGICAL: Denies any bleeding or petechiae. GENITOURINARY: Denies any burning micturition, frequency, or urgency. MUSCULOSKELETAL/RHEUMATOLOGICAL: Denies any joint pain, swelling, or any muscle pain. ENDOCRINE: Denies any polyuria or polydipsia. The rest of the 14-point review of systems is negative. PHYSICAL EXAMINATION: GENERAL: The patient is alert and oriented x3, not in any acute distress. Well developed, well nourished. Somewhat fatigued. He appears stated age. HEENT: Pupils are round and equally reacting to light. EOMI. No scleral icterus. No conjunctival pallor. Normocephalic, atraumatic. No pharyngeal erythema. No thyromegaly. CARDIOVASCULAR: S1 and S2 present. No murmurs, rubs, or gallops. PULMONARY: Chest is clear to auscultation, no wheezing or crackles. ABDOMEN: Soft, nontender, nondistended, normoactive bowel sounds. No palpable organomegaly. MUSCULOSKELETAL: No joint swelling or deformity. EXTREMITIES: No cyanosis, clubbing, or pedal edema. Limited range of motion rights shoulder with significant pain. NEUROLOGICAL: Gross neurological examination did not reveal any focal deficits. SKIN: No rashes. Has abrasian across bridge of nose and forehead. Assessment and plan Assessment Lightheadedness and syncope possibly secondary to anemia from known diagnosis of myelodysplastic syndrome Syncope with fall/ trauma with right shoulder pain and limited range of motion Unable to rule out GI Bleed as contributing to anemia although there has been no reports of melena or hematemesis. Family and patient would not like to pursue any type of endoscopic procedure. Myelodysplastic disorder diagnosis in December of this year follows with oncology. Per family not a candidate for bone marrow biopsy. Recent admission at [facility] for low hemoglobin and received blood and platelet transfusion History stroke Carotid artery bypass many years ago History atrial fibrillation status post permanent pacemaker, was maintained on xarelto which he has been taken off of due to frequent episodes of epistaxis. Questionable history of valvular heart disease per family Sleep apnea Depressed affect Generalized weakness GI prophylaxis protonix DVT prophyalxis Deferred at this time secondary to low platelet and hemoglobin Full Code Plan Obtain xray of right shoulder/clavicle Possible orthopedics consultation Hematology/oncology consultation Patient ordered for 2 units of PRBC and will repeat hemoglobin in AM PT/OT will be consulted Pacer interrogation and also check orthostatic blood pressure The impression and plan of care has been dictated by Dejah Shetty Nurse Practitioner as directed. Dr. Cassandra MD I have performed a history and physical examination and medical decision making of this patient, discussed the same with the dictator, and agree with the dictators assessment and plan as written, documented as a scribe. Based on total visit time, I have performed more than 50% of this visit. Past Medical History Past Medical History: Coronary Artery Disease (CAD), CVA/TIA, Hyperlipidemia, Sleep Apnea/CPAP/BIPAP Additional Past Medical History / Comment(s): MDS History of Any Multi-Drug Resistant Organisms: None Reported Past Surgical History: Coronary Bypass/CABG, Orthopedic Surgery, Pacemaker, Tonsillectomy Additional Past Surgical History / Comment(s): left shoulder surgery, CABG 15 yr ago, evelyn cataracts Past Anesthesia/Blood Transfusion Reactions: No Reported Reaction Type of Cardiac Device: Permanent Pacemaker Device Placement Date:: Past Psychological History: No Psychological Hx Reported Smoking Status: Former smoker Past Alcohol Use History: Rare Additional Past Alcohol Use History / Comment(s): quit smoking about 15 yrs ago Past Drug Use History: None Reported - Past Family History Mother Family Medical History: No Reported History Medications and Allergies Home Medications Medication Instructions Recorded Confirmed Type Metoprolol Succinate [Toprol XL] 25 mg PO TID 05/06/21 06/29/22 History Simvastatin [Zocor] 40 mg PO HS 05/06/21 06/29/22 History Dulaglutide [Trulicity] 0.75 mg SQ DENNIS 12/09/21 06/29/22 History Furosemide [Lasix] 40 mg PO DAILY 06/29/22 06/29/22 History Potassium Gluconate [Potassium 99 mg PO DAILY 06/29/22 06/29/22 History Gluconate ER] Allergies Allergy/AdvReac Type Severity Reaction Status Date / Time No Known Allergies Allergy Verified 06/29/22 19:51 Physical Exam Vitals: Vital Signs Temp Pulse Pulse Resp BP BP Pulse Ox 06/30/22 04:24 99.9 F H 64 12 140/65 97 06/29/22 22:56 99.7 F H 62 12 133/63 96 06/29/22 22:29 99.1 F 62 14 102/62 95 06/29/22 21:10 99.4 F 60 14 110/78 96 06/29/22 20:50 99.1 F 60 12 120/52 94 L 06/29/22 16:19 99.0 F 60 16 131/51 98 Intake and Output 06/29/22 06/30/22 06/30/22 22:59 06:59 14:59 Intake Total 310 Balance 310 Intake: Blood Product 310 Rc As-1 Unit 310 [id number] Other: Voiding Method Toilet # Voids 2 Weight 77.111 kg Results CBC & Chem 7: 06/30/22 10:14 06/30/22 10:14 Labs: Abnormal Lab Results - Last 24 Hours (Table) 06/29/22 06/29/22 06/29/22 Range/Units 17:15 17:15 18:15 WBC 1.2 L* (3.8-10.6) k/uL RBC 1.90 L (4.30-5.90) m/uL Hgb 6.0 L* (13.0-17.5) gm/dL Hct 19.0 L* (39.0-53.0) % RDW 20.9 H (11.5-15.5) % Plt Count 63 L (150-450) k/uL Neutrophils # (Manual) 0.30 L* (1.3-7.7) k/uL Lymphocytes # (Manual) 0.91 L (1.0-4.8) k/uL Metamyelocytes # (Man) 0.01 H (0) k/uL Nucleated RBCs 6 H (0-0) /100 WBC Sodium 134 L (137-145) mmol/L BUN 21 H (9-20) mg/dL Glucose 162 H (74-99) mg/dL POC Glucose (mg/dL) (70-110) mg/dL Total Bilirubin 3.5 H (0.2-1.3) mg/dL Albumin 3.4 L (3.5-5.0) g/dL Urine Protein (Negative) Urine Mucus (None) /hpf Crossmatch See Detail 06/30/22 06/30/22 Range/Units 00:29 06:17 WBC (3.8-10.6) k/uL RBC (4.30-5.90) m/uL Hgb (13.0-17.5) gm/dL Hct (39.0-53.0) % RDW (11.5-15.5) % Plt Count (150-450) k/uL Neutrophils # (Manual) (1.3-7.7) k/uL Lymphocytes # (Manual) (1.0-4.8) k/uL Metamyelocytes # (Man) (0) k/uL Nucleated RBCs (0-0) /100 WBC Sodium (137-145) mmol/L BUN (9-20) mg/dL Glucose (74-99) mg/dL POC Glucose (mg/dL) 177 H (70-110) mg/dL Total Bilirubin (0.2-1.3) mg/dL Albumin (3.5-5.0) g/dL Urine Protein 1+ H (Negative) Urine Mucus Occasional H (None) /hpf Crossmatch Thrombosis Risk Factor Assmnt - Choose All That Apply Any of the Below Risk Factors Present?: Yes Each Factor Represents 1 point: Obesity (BMI >25) Other Risk Factors: Yes Each Risk Factor Represents 3 Points: Age 75 years or older Other congenital or acquired thrombophilia - If yes, enter type in comment: Yes (MDS) Thrombosis Risk Factor Assessment Total Risk Factor Score: 4 Thrombosis Risk Factor Assessment Level: Moderate Risk Assessment and Plan Time with Patient: Greater than 30
[2022-06-30] MEDS ORDERED: HYDROmorphone 0.5 MG/0.5 ML SYRINGE IVP PRN (17:59)
--- NOTE | 2022-06-30 19:34 | XR ---
PROCEDURE: XR scapula RT - 3V DATE AND TIME: 06/30/2022 6:35 PM CLINICAL INDICATION: PHH; rule out fracture TECHNIQUE: Department protocol COMPARISON: None FINDINGS: There is no fracture or malalignment. Degenerative joint changes are seen at the acromioclavicular and glenohumeral joints. The soft tissues are unremarkable. The visualized lungs show a prominent interstitial pattern throughout the visualized right upper and midlung zones. IMPRESSION: 1. No acute skeletal process. 2. Pulmonary edema pattern.
[2022-06-30] MEDS: ATORVASTATIN 20 MG TAB PO SCH (20:08)
[2022-06-30 20:14] LABS: Glucose,Whole Blood 188 mg/dL (70-110)
[2022-07-01 05:53] LABS: Glucose,Whole Blood 155 mg/dL (70-110)
[2022-07-01] MEDS: INSULIN ASPART (NovoLOG) 100 UNIT/ML VIAL SQ SCH ×4 (05:55→20:44)
--- NOTE | 2022-07-01 09:00 | P.CONS ---
History of Present Illness - Reason for Consult Consult date: 06/30/22 MDS, anemia Requesting physician: Mason Hernández - Chief Complaint syncope, fall - History of Present Illness Mr. Pena is a pleasant male with history of of chronic anticoagulation, hypertensive heart disease, diabetes type 2 [id number], referred by his PCP for pancytopenia. Remote Tobacco and ETOH. Pacemaker in 2004. CVA in 2004. On 12/20/2021, bone marrow biopsy revealed hypercellular marrow, 5% blasts, consistent with MDS excess blasts1, normal cytogentics and FISH for MDS, NGS revealed ASXl, RUNX1, ZRSR2 mutations, VUS in EZH2. Pt and have had 4 lengthy discussions with Providers ashutosh December 2021 re: diagnosis, prognosis, treatment options including HMA Tx and Allo SCT. He has opted for supportive transfusions only and has been in ofc weekly for CBC and transfusions PRN. 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 It has been explained that transfusions are temporary fix for low Hgb and plt. Typically transfused products will last 7-10 days. They do not treat the underlying problem. He will be transfusion dependent the rest of his life. He also understands that his MDS can transform into other hematological diseases, such as acute leukemia. Pt has been offered treatment previously and has declined. 06/27 Hgb was 7.1. Admitted for fall/syncopy at home. Pt has facial bruising, CT head without x 1 was neg for acute bleed. Review of Systems 10 point review of systems is negative except as stated in HPI Past Medical History Past Medical History: Coronary Artery Disease (CAD), CVA/TIA, Hyperlipidemia, Sleep Apnea/CPAP/BIPAP Additional Past Medical History / Comment(s): MDS History of Any Multi-Drug Resistant Organisms: None Reported Past Surgical History: Coronary Bypass/CABG, Orthopedic Surgery, Pacemaker, Tonsillectomy Additional Past Surgical History / Comment(s): left shoulder surgery, CABG 15 yr ago, evelyn cataracts Past Anesthesia/Blood Transfusion Reactions: No Reported Reaction Type of Cardiac Device: Permanent Pacemaker Device Placement Date:: Past Psychological History: No Psychological Hx Reported Smoking Status: Former smoker Past Alcohol Use History: Rare Additional Past Alcohol Use History / Comment(s): quit smoking about 15 yrs ago Past Drug Use History: None Reported - Past Family History Mother Family Medical History: No Reported History Medications and Allergies Home Medications Medication Instructions Recorded Confirmed Type Metoprolol Succinate [Toprol XL] 25 mg PO TID 05/06/21 06/29/22 History Simvastatin [Zocor] 40 mg PO HS 05/06/21 06/29/22 History Dulaglutide [Trulicity] 0.75 mg SQ DENNIS 12/09/21 06/29/22 History Furosemide [Lasix] 40 mg PO DAILY 06/29/22 06/29/22 History Potassium Gluconate [Potassium 99 mg PO DAILY 06/29/22 06/29/22 History Gluconate ER] Allergies Allergy/AdvReac Type Severity Reaction Status Date / Time No Known Allergies Allergy Verified 06/29/22 19:51 Physical Exam Vitals: Vital Signs Temp Pulse Pulse Resp BP BP Pulse Ox 06/30/22 04:24 99.9 F H 64 12 140/65 97 06/29/22 22:56 99.7 F H 62 12 133/63 96 06/29/22 22:29 99.1 F 62 14 102/62 95 06/29/22 21:10 99.4 F 60 14 110/78 96 06/29/22 20:50 99.1 F 60 12 120/52 94 L 06/29/22 16:19 99.0 F 60 16 131/51 98 Intake and Output 06/29/22 06/30/22 06/30/22 22:59 06:59 14:59 Intake Total 310 Balance 310 Intake: Blood Product 310 Rc As-1 Unit 310 [id number] Other: Voiding Method Toilet # Voids 2 Weight 77.111 kg - Constitutional General appearance: average body habitus, cooperative, no acute distress - EENT patient has a bruise on his forehead as well as across the bridge of his nose, some bruising and swelling noted on the right clavicle Eyes: anicteric sclerae, EOMI ENT: hearing grossly normal, normal oropharynx - Neck Neck: no lymphadenopathy - Respiratory Respiratory: bilateral: CTA - Cardiovascular Rhythm: regular Heart sounds: normal: S1, S2 Abnormal Heart Sounds: no systolic murmur, no diastolic murmur, no rub, no S3 Gallop, no S4 Gallop, no click, no other leg Peripheral Edema: bilateral: None - Gastrointestinal General gastrointestinal: no absent bowel sounds, no decreased bowel sounds, no distended, no hepatomegaly, no hyperactive bowel sounds, normal bowel sounds, no organomegaly, no rigid, no scaphoid, soft, no splenomegaly, no tenderness, no umbilical hernia, no ventral hernia - Integumentary bruising from trauma - Neurologic Neurologic: CNII-XII intact (grossly) - Musculoskeletal Musculoskeletal: generalized weakness, strength equal bilaterally - Psychiatric patient is alert and oriented to self, place, time, he seems to be slow in his responses today. He is appropriate in answering questions. Results CBC & Chem 7: 06/30/22 10:14 06/30/22 10:14 Labs: Abnormal Lab Results - Last 24 Hours (Table) 06/29/22 06/29/22 06/29/22 Range/Units 17:15 17:15 18:15 WBC 1.2 L* (3.8-10.6) k/uL RBC 1.90 L (4.30-5.90) m/uL Hgb 6.0 L* (13.0-17.5) gm/dL Hct 19.0 L* (39.0-53.0) % RDW 20.9 H (11.5-15.5) % Plt Count 63 L (150-450) k/uL Neutrophils # (Manual) 0.30 L* (1.3-7.7) k/uL Lymphocytes # (Manual) 0.91 L (1.0-4.8) k/uL Metamyelocytes # (Man) 0.01 H (0) k/uL Nucleated RBCs 6 H (0-0) /100 WBC Sodium 134 L (137-145) mmol/L BUN 21 H (9-20) mg/dL Glucose 162 H (74-99) mg/dL POC Glucose (mg/dL) (70-110) mg/dL Total Bilirubin 3.5 H (0.2-1.3) mg/dL Albumin 3.4 L (3.5-5.0) g/dL Urine Protein (Negative) Urine Mucus (None) /hpf Crossmatch See Detail 06/30/22 06/30/22 Range/Units 00:29 06:17 WBC (3.8-10.6) k/uL RBC (4.30-5.90) m/uL Hgb (13.0-17.5) gm/dL Hct (39.0-53.0) % RDW (11.5-15.5) % Plt Count (150-450) k/uL Neutrophils # (Manual) (1.3-7.7) k/uL Lymphocytes # (Manual) (1.0-4.8) k/uL Metamyelocytes # (Man) (0) k/uL Nucleated RBCs (0-0) /100 WBC Sodium (137-145) mmol/L BUN (9-20) mg/dL Glucose (74-99) mg/dL POC Glucose (mg/dL) 177 H (70-110) mg/dL Total Bilirubin (0.2-1.3) mg/dL Albumin (3.5-5.0) g/dL Urine Protein 1+ H (Negative) Urine Mucus Occasional H (None) /hpf Crossmatch Chest x-ray: report reviewed CT Scan - head: report reviewed Assessment and Plan (1) MDS (myelodysplastic syndrome) Current Visit: Yes Status: Acute Priority: High Code(s): D46.9 - MYELODYSPLASTIC SYNDROME, UNSPECIFIED SNOMED Code(s): 863078954 Plan: Pt has opted for CBC monitoring with supportive transfusions as needed. Transfuse for Hgb <7, platelets less then 50,000 as pt is on anticoagulation. Syncopy with head injury. Pt on anticoagulation. Nothing in the CT head report to suggest acute bleed. Monitor pt closely for any mental status or neurological changes. attests: I have seen and examined patient, performed H&P, developed impression and plan of care. Discussed with dictator. Agree with documentation, dictated as a scribe.
[2022-07-01] MEDS: PANTOPRAZOLE 40 MG/10 ML VIAL IVP SCH (09:45)
[2022-07-01] MEDS: HYDROcodone/APAP 5-325MG 1 EACH TAB PO PRN (09:59)
[2022-07-01 11:57] LABS: Glucose,Whole Blood 134 mg/dL (70-110)
[2022-07-01 12:25] LABS: African American GFR (CKD) >90 (>60 ml/min/1.73 sqM); Anion Gap 10 mmol/L; Blood Urea Nitrogen 16 mg/dL (9-20); Carbon Dioxide 22 mmol/L (22-30); Chloride 102 mmol/L (98-107); Glucose 120 mg/dL (74-99); Non-African American GFR(CKD) 89 (>60 ml/min/1.73 sqM); Potassium 3.7 mmol/L (3.5-5.1); Sodium 134 mmol/L (137-145)
[2022-07-01 12:28] LABS: Anisocytosis Moderate; HCT 24.9 % (39.0-53.0); Hypochromasia Marked; MCH 30.8 pg (25.0-35.0); MCHC 32.1 g/dL (31.0-37.0); MCV 95.8 fL (80.0-100.0); Macrocytosis Slight; Mean Platelet Volume 11.1; Platelet Count 58 k/uL (150-450); Poikilocytosis Marked; RDW 21.4 % (11.5-15.5)
[2022-07-01 12:55] LABS: Band Neutrophils % 2 %; Lymphocytes # (M) 0.86 k/uL (1.0-4.8); Metamyelocytes # (M) 0.02 k/uL (0); Metamyelocytes % 1 %; Monocytes # (M) 0.02 k/uL (0-1.0); Neutrophils % (M) 60 %; Nucleated Red Blood Cells 14 /100 WBC (0-0); Polychromasia Present; Total Cells Counted 100; WBC 2.4 k/uL (3.8-10.6)
[2022-07-01 12:57] LABS: Anisocytosis (M) Present; Basophilic Stippling Present; Poikilocytosis (M) Present
[2022-07-01] MEDS: ACETAMINOPHEN TAB 325 MG TAB PO PRN ×2 (13:13→19:32)
--- NOTE | 2022-07-01 14:20 | P.PN ---
Subjective Progress Note Date: 07/01/22 This is a 77-year-old male history of myelodysplastic syndrome, stroke, hyperlipidemia, sleep apnea, Carotid artery disease with bypass which was "on an artery that runs down his left neck", atrial fibrillation, pacemaker in 2016. 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 He has not had open heart surgery as per the recording medical history. Presenting with complaints of lightheadedness and syncopal episode with momentary loss of consciousness. Patient states he was walking up steps felt lightheaded and fell, it was unwitnessed and awoke on the ground. He denies diaphoresis, chest pain, shortness of breath prior and states he had just been hanging out around the house. No strenuous activity prior. He is brought in by paramedics he did sustain a skin tear to his left upper extremity and abrasion on his forehead. There is some pain in the right clavicle and also right shoulder with limited range of motion. Patient had a CT of the brain and C-spine showing multiple old infarcts and cerebral atrophy left maxillary sinusitis and ethmoid sinusitis or spondylitic changes in the lower cervical spine with no fracture. Chest x-ray showing pulmonary interstitial edema similar to old exam with no pleural fluid seen to suggest heart failure, possibly chronic interstitial pneumonia. EKG shows a ventricular pacemaker heart rate in the 60s. He presents with a white count of 1.2, hemoglobin 6.0, hematocrit 19.0, neutrophils of 0.30, platelet count of 63. He has also sodium level 136, BUN 21, creatinine 1.00, albumin 3.4. Glucose is elevated at 177. Urine is showing 1+ protein with occasional mucus not suggestive of any urinary tract infection. He was admitted to the hospital with a consult with oncology/hematology services for further evaluation. Patient received 1 unit of packed red blood cells for hemoglobin of 6.0. He states he was diagnosed with MDS back in December through routine health screenings and was evaluated by oncology outpatient, follows with Dr. Whittaker. Was sent to the ER in back in may from hematology for low hemoglobin found in his work up for bone marrow biopsy which per he is not a candidate for bone marrow biopsy, which at that time was 4.9 and [facility]. Patient states it was from "bleeding to much" although he denies rectal bleeding, hemetemesis. Per the patients he had significant nose bleeds which is a reason why he came off of the xarelto. The states he got 5 units of blood and 2 units of platelets there and did not get scoped. Had a previous colonoscopy in January of this year and there were no acute findings per . Was discharged with hemoglobin around 6 which per is his baseline. He is so mewhat of a poor historian unable to give the reason for being on the blood thinner. His syncopal episode is most likely from the anemia, orthostatics will be checked and his pacemaker will be interrogated for further investigation. Patients would like to speak with palliative care. Patient and family are denying transfer for GI and also to see surgical services for further evalauation to rule out GI bleed. 07/01/2022 Patient evaluated today sitting up in chair. Worked with physical therapy, significant weakness. Patient follows with Dr. Nunez out of [facility] for [facility] services. He continues to monitored off xarelto. No signs for acute bleeding. Anemia is most secondary the MDS and currently the treatment patient and family are wishing to pursue is monitoring and blood transfusion although not a permanent solution. Xrays reviewed and there is sprain to the right shoulder AC joint and we will recommend at this point to alternate ice and heat and pain management is in place. He can see Dr. Hills outpatient for this. Sodium 134, potassium 3.7, BUN 16, creatinine 0.77, blood glucose 130s, calcium 8.0. Urine is negative for infection. Blood pressure today 145/69. Review of Systems Constitutional: Reports fatigue, generalized weakness, denied any fever. Cardio vascular: denied any chest pain, palpitations Gastrointestinal: denied any nausea, vomiting, diarrhea Pulmonary: Denied any shortness of breath cough Neurologic denied any new focal deficits All inpatient medications were reviewed and appropriate changes in these medications as dictated in the interval history and assessment and plan. PHYSICAL EXAMINATION: GENERAL: The patient is alert and oriented x3, not in any acute distress. Well developed, well nourished. Somewhat fatigued. He appears stated age. HEENT: Pupils are round and equally reacting to light. EOMI. No scleral icterus. No conjunctival pallor. Normocephalic, atraumatic. No pharyngeal erythema. No thyromegaly. CARDIOVASCULAR: S1 and S2 present. No murmurs, rubs, or gallops. PULMONARY: Chest is clear to auscultation, no wheezing or crackles. ABDOMEN: Soft, nontender, nondistended, normoactive bowel sounds. No palpable organomegaly. MUSCULOSKELETAL: No joint swelling or deformity. EXTREMITIES: No cyanosis, clubbing, or pedal edema. Limited range of motion rights shoulder with significant pain. NEUROLOGICAL: Gross neurological examination did not reveal any focal deficits. SKIN: No rashes. Has abrasian across bridge of nose and forehead. Assessment and plan Assessment Lightheadedness and syncope possibly secondary to anemia from known diagnosis of myelodysplastic syndrome Syncope with fall/ trauma with right shoulder pain and limited range of motion there is evidence for right shoulder AC sprain found on imaging. Unable to rule out GI Bleed as contributing to anemia although there has been no reports of melena or hematemesis. Family and patient would not like to pursue any type of endoscopic procedure. Hgb has improved to 8.0 after 2 units of PRBCs. Myelodysplastic disorder diagnosis in December of this year follows with oncology. Per family not a candidate for bone marrow biopsy. Recent admission at [facility] for low hemoglobin and received blood and platelet transfusion History stroke Carotid artery bypass many years ago History atrial fibrillation status post permanent pacemaker, was maintained on xarelto which he has been taken off of due to frequent episodes of epistaxis. Questionable history of valvular heart disease per family Sleep apnea Depressed affect Generalized weakness GI prophylaxis protonix DVT prophyalxis Deferred at this time secondary to low platelet and hemoglobin Full Code Plan Recommend alternating ice and heat to right shoulder with limited activity follow up with Dr. Marcos Hills outpatient for further evaluation Pain management in place Hematology/oncology consultation Continue with hemoglobin monitoring PT/OT consultation recommending subacute rehab patient is agreeable and he is currently pending auth Further recommendations from hematology for now patient has opted for conservative management of MDS Palliative care has been consulted. The impression and plan of care has been dictated by Nurse Ivania Carranza as directed. Dr. Cassandra MD I have performed a history and physical examination and medical decision making of this patient, discussed the same with the dictator, and agree with the dict ators assessment and plan as written, documented as a scribe. Based on total visit time, I have performed more than 50% of this visit. Objective - Vital Signs Vital signs: Vital Signs Temp 99.4 F 10/28/22 08:00 Pulse 62 07/01/22 08:00 Resp 20 07/01/22 08:00 BP 145/69 07/01/22 08:00 Pulse Ox 95 07/01/22 08:00 FiO2 Intake & Output 06/30/22 07/01/22 07/01/22 18:59 06:59 18:59 Intake Total 670 Balance 670 Weight 77.111 kg Intake: Oral 360 Blood Product 310 Rc As-1 Unit 310 [id number] Other: Voiding Method Toilet Toilet Toilet # Voids 1 3 - Labs CBC & Chem 7: 07/01/22 11:43 07/01/22 11:43 Labs: Abnormal Lab Results - Last 24 Hours (Table) 06/29/22 06/30/22 06/30/22 Range/Units 18:15 16:46 19:59 WBC (3.8-10.6) k/uL RBC (4.30-5.90) m/uL Hgb (13.0-17.5) gm/dL Hct (39.0-53.0) % RDW (11.5-15.5) % Plt Count (150-450) k/uL Lymphocytes # (Manual) (1.0-4.8) k/uL Metamyelocytes # (Man) (0) k/uL Nucleated RBCs (0-0) /100 WBC Sodium (137-145) mmol/L Glucose (74-99) mg/dL POC Glucose (mg/dL) 144 H 188 H (70-110) mg/dL Calcium (8.4-10.2) mg/dL Crossmatch See Detail 07/01/22 07/01/22 07/01/22 Range/Units 05:51 11:43 11:43 WBC 2.4 L (3.8-10.6) k/uL RBC 2.60 L (4.30-5.90) m/uL Hgb 8.0 L (13.0-17.5) gm/dL Hct 24.9 L (39.0-53.0) % RDW 21.4 H (11.5-15.5) % Plt Count 58 L (150-450) k/uL Lymphocytes # (Manual) 0.86 L (1.0-4.8) k/uL Metamyelocytes # (Man) 0.02 H (0) k/uL Nucleated RBCs 14 H (0-0) /100 WBC Sodium 134 L (137-145) mmol/L Glucose 120 H (74-99) mg/dL POC Glucose (mg/dL) 155 H (70-110) mg/dL Calcium 8.0 L (8.4-10.2) mg/dL Crossmatch 07/01/22 Range/Units 11:55 WBC (3.8-10.6) k/uL RBC (4.30-5.90) m/uL Hgb (13.0-17.5) gm/dL Hct (39.0-53.0) % RDW (11.5-15.5) % Plt Count (150-450) k/uL Lymphocytes # (Manual) (1.0-4.8) k/uL Metamyelocytes # (Man) (0) k/uL Nucleated RBCs (0-0) /100 WBC Sodium (137-145) mmol/L Glucose (74-99) mg/dL POC Glucose (mg/dL) 134 H (70-110) mg/dL Calcium (8.4-10.2) mg/dL Crossmatch Assessment and Plan Time with Patient: Less than 30
--- NOTE | 2022-07-01 15:09 | P.CONS ---
History of Present Illness - Reason for Consult Consult date: 07/01/22 [facility] Requesting physician: Dejah Shetty - Chief Complaint Syncope - History of Present Illness The patient is a 77-year-old male history of myelodysplastic syndrome, stroke, hyperlipidemia, sleep apnea, CAD, CABG, DM II, atrial fibrillation, pacemaker in 2016. Presenting with complaints of lightheadedness and syncopal episode with momentary loss of consciousness. Patient states he was walking up steps felt lightheaded and fell, it was unwitnessed and awoke on the ground. He denies diaphoresis, chest pain, shortness of breath prior and states he had just been hanging out around the house. No strenuous activity prior. He is brought in by paramedics he did sustain a skin tear to his left upper extremity and abrasion on his forehead. There is some pain in the right clavicle and also right shoulder with limited range of motion. Patient had a CT of the brain and C-spine showing multiple old infarcts and cerebral atrophy left maxillary sinusitis and ethmoid sinusitis or spondylitic changes in the lower cervical spine with no fracture. Chest x-ray showing pulmonary interstitial edema similar to old exam with no pleural fluid seen to suggest heart failure, possibly chronic interstitial pneumonia. EKG shows a ventricular pacemaker heart rate in the 60s. He presented with a white count of 1.2, hemoglobin 6.0, hematocrit 19.0, neutrophils of 0.30, platelet count of 63. He has also sodium level 136, BUN 21, creatinine 1.00, albumin 3.4. Urine is not suggestive of any urinary tract infection. He was admitted to the hospital with a consult with oncolog y/hematology services for further evaluation. Patient has received 2 units of packed red blood cells for hemoglobin of 6.0. Per oncology, the patient and have had 4 lengthy discussions with Providers since December 2021 re: diagnosis, prognosis, treatment options. He has opted for supportive transfusions only and has been in office weekly for CBC and transfusions PRN. It has been explained that transfusions are temporary fix for low Hgb and plt. Typically transfused products will last 7-10 days. They do not treat the underlying problem. He will be transfusion dependent the rest of his life. He also understands that his MDS can transform into other hematological diseases, such as acute leukemia. The patient has been offered treatment previously and has declined. Patient and family are denying transfer for GI and also to see surgical services for further evalauation to rule out GI bleed. Review of Systems Constitutional: Reports as per HPI Past Medical History Past Medical History: Coronary Artery Disease (CAD), CVA/TIA, Hyperlipidemia, Sleep Apnea/CPAP/BIPAP Additional Past Medical History / Comment(s): MDS History of Any Multi-Drug Resistant Organisms: None Reported Past Surgical History: Coronary Bypass/CABG, Orthopedic Surgery, Pacemaker, Tonsillectomy Additional Past Surgical History / Comment(s): left shoulder surgery, CABG 15 yr ago, evelyn cataracts Past Anesthesia/Blood Transfusion Reactions: No Reported Reaction Type of Cardiac Device: Permanent Pacemaker Device Placement Date:: Past Psychological History: No Psychological Hx Reported Smoking Status: Former smoker Past Alcohol Use History: Rare Additional Past Alcohol Use History / Comment(s): quit smoking about 15 yrs ago Past Drug Use History: None Reported - Past Family History Mother Family Medical History: No Reported History Medications and Allergies Home Medications Medication Instructions Recorded Confirmed Type Metoprolol Succinate [Toprol XL] 25 mg PO TID 05/06/21 06/29/22 History Simvastatin [Zocor] 40 mg PO HS 05/06/21 06/29/22 History Dulaglutide [Trulicity] 0.75 mg SQ DENNIS 12/09/21 06/29/22 History Furosemide [Lasix] 40 mg PO DAILY 06/29/22 06/29/22 History Potassium Gluconate [Potassium 99 mg PO DAILY 06/29/22 06/29/22 History Gluconate ER] Allergies Allergy/AdvReac Type Severity Reaction Status Date / Time No Known Allergies Allergy Verified 06/29/22 19:51 Physical Exam Vitals: Vital Signs Temp Pulse Pulse Pulse Resp BP BP 07/01/22 08:00 99.4 F 62 20 07/01/22 03:10 98.3 F 66 20 06/30/22 23:15 97.8 F 61 17 06/30/22 19:46 98.5 F 62 18 06/30/22 16:35 98.5 F 62 15 121/60 06/30/22 16:08 98.6 F 80 17 126/54 BP BP Pulse Ox 07/01/22 08:00 145/69 95 07/01/22 03:10 163/72 95 06/30/22 23:15 143/76 100 06/30/22 19:46 134/67 97 06/30/22 16:35 98 06/30/22 16:08 99 Intake and Output 06/30/22 07/01/22 07/01/22 22:59 06:59 14:59 Intake Total 490 Balance 490 Intake: Oral 180 Blood Product 310 Rc As-1 Unit 310 [id number] Other: Voiding Method Toilet Toilet Toilet # Voids 1 3 General: Well developed, well nourished. No acute distress. Chronically ill appearing HEENT: Head is atraumatic, normocephalic. Mucus membranes moist. CV: Heart regular in rate and rhythm positive S1 and S2. Peripheral pulses equal. 2/4 Lungs: Clear to auscultation bilaterally. No wheezes rales or rhonchi. Respirations even and nonlabored. Abdomen/GI: Soft. Bowel sounds present in all 4 quadrants.No guarding, rigidity, or abdominal tenderness. Musculoskeletal/ Extremities: OWEN, no joint deformity or swelling. No gross atrophy. + generalized weakness, Right UE limited ROM 2/2 shoulder pain Vascular: Radial pulses equal. 2/4. No peripheral edema Skin: Warm and dry, Abrasion to bridge of nose and forehead. Neurologic: Awake, alert and oriented times 3. CN II-XII grossly intact. No focal deficits. Psychiatric: Appropriate mood and affect. Results CBC & Chem 7: 07/01/22 11:43 07/01/22 11:43 Labs: Abnormal Lab Results - Last 24 Hours (Table) 06/29/22 06/30/22 06/30/22 Range/Units 18:15 16:46 19:59 WBC (3.8-10.6) k/uL RBC (4.30-5.90) m/uL Hgb (13.0-17.5) gm/dL Hct (39.0-53.0) % RDW (11.5-15.5) % Plt Count (150-450) k/uL Lymphocytes # (Manual) (1.0-4.8) k/uL Metamyelocytes # (Man) (0) k/uL Nucleated RBCs (0-0) /100 WBC Sodium (137-145) mmol/L Glucose (74-99) mg/dL POC Glucose (mg/dL) 144 H 188 H (70-110) mg/dL Calcium (8.4-10.2) mg/dL Crossmatch See Detail 07/01/22 07/01/22 07/01/22 Range/Units 05:51 11:43 11:43 WBC 2.4 L (3.8-10.6) k/uL RBC 2.60 L (4.30-5.90) m/uL Hgb 8.0 L (13.0-17.5) gm/dL Hct 24.9 L (39.0-53.0) % RDW 21.4 H (11.5-15.5) % Plt Count 58 L (150-450) k/uL Lymphocytes # (Manual) 0.86 L (1.0-4.8) k/uL Metamyelocytes # (Man) 0.02 H (0) k/uL Nucleated RBCs 14 H (0-0) /100 WBC Sodium 134 L (137-145) mmol/L Glucose 120 H (74-99) mg/dL POC Glucose (mg/dL) 155 H (70-110) mg/dL Calcium 8.0 L (8.4-10.2) mg/dL Crossmatch 07/01/22 Range/Units 11:55 WBC (3.8-10.6) k/uL RBC (4.30-5.90) m/uL Hgb (13.0-17.5) gm/dL Hct (39.0-53.0) % RDW (11.5-15.5) % Plt Count (150-450) k/uL Lymphocytes # (Manual) (1.0-4.8) k/uL Metamyelocytes # (Man) (0) k/uL Nucleated RBCs (0-0) /100 WBC Sodium (137-145) mmol/L Glucose (74-99) mg/dL POC Glucose (mg/dL) 134 H (70-110) mg/dL Calcium (8.4-10.2) mg/dL Crossmatch Chest x-ray: report reviewed CT Scan - head: report reviewed Assessment and Plan Assessment: Symptoms * Pain - 5/10 right clavicle/shoulder pain, Continue [place], Dilaudid, and Tylenol * Fatigue - + generalized weakness and fatigue * SOB - No * Insomnia - No * N/V - No * Anxiety - No * Depression -No * Confusion - No * Agitation - No * Hallucinations - No * Appetite/weight loss - No recent weight loss, + poor appetite. Continue Regular diet with nutritional supplement TID with meals * Dysphagia -No * Constipation - No * Incontinence - No * Itch - No Plan: Summary/Goals - The patient is sitting up in the chair. Met with the patient, his , and his son. Education regarding his MDS was provided. Palliative care and hospice philosophies and services explained. The patient stated he wanted to continue with his supportive treatments for now, he wants to continue receiving transfusions as needed. He is not ready for hospice yet. His goal is to gain some strength back at rehab. He understands that there is not a cure for his underlying disease. Per oncology he will need transfusions for the rest of his life. The patient and his did agree to palliative care a an eventual bridge to hospic Recommendations - Discharge to rehab with OP palliative care Advanced Directives - None on file Code Status - Full Code Thank you for this consultation Hillary Lindo [facility] Palliative Care [facility] [id number] Email: [email or web address]. Time with Patient: Greater than 30
[2022-07-01 16:47] LABS: Glucose,Whole Blood 133 mg/dL (70-110)
[2022-07-01] MEDS: traMADol 50 MG TAB PO PRN (19:32)
[2022-07-01 20:15] LABS: Glucose,Whole Blood 147 mg/dL (70-110)
[2022-07-01] MEDS: ATORVASTATIN 20 MG TAB PO SCH (20:38)
[2022-07-02 05:53] LABS: Glucose,Whole Blood 124 mg/dL (70-110)
[2022-07-02] MEDS: INSULIN ASPART (NovoLOG) 100 UNIT/ML VIAL SQ SCH ×4 (05:54→20:14)
[2022-07-02] MEDS ORDERED: ESCITALOPRAM 10 MG TAB PO SCH (09:00)
[2022-07-02 09:14] LABS: Anisocytosis Moderate; HCT 23.6 % (39.0-53.0); HGB 7.7 gm/dL (13.0-17.5); Hypochromasia Marked; MCH 31.1 pg (25.0-35.0); MCHC 32.4 g/dL (31.0-37.0); Macrocytosis Slight; Mean Platelet Volume 10.5; Platelet Count 54 k/uL (150-450); Poikilocytosis Marked; RBC 2.46 m/uL (4.30-5.90); RDW 21.4 % (11.5-15.5)
[2022-07-02 09:28] LABS: African American GFR (CKD) >90 (>60 ml/min/1.73 sqM); Anion Gap 6 mmol/L; Blood Urea Nitrogen 15 mg/dL (9-20); Carbon Dioxide 27 mmol/L (22-30); Chloride 103 mmol/L (98-107); Glucose 108 mg/dL (74-99); Non-African American GFR(CKD) 87 (>60 ml/min/1.73 sqM); Potassium 3.9 mmol/L (3.5-5.1); Sodium 136 mmol/L (137-145)
[2022-07-02] MEDS: PANTOPRAZOLE 40 MG/10 ML VIAL IVP SCH (10:06)
[2022-07-02] MEDS: traMADol 50 MG TAB PO PRN ×3 (10:06→23:09)
--- NOTE | 2022-07-02 11:54 | P.PN ---
Subjective Progress Note Date: 07/02/22 This is a 77-year-old male history of myelodysplastic syndrome, stroke, hyperlipidemia, sleep apnea, Carotid artery disease with bypass which was "on an artery that runs down his left neck", atrial fibrillation, pacemaker in 2016. 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 He has not had open heart surgery as per the recording medical history. Presenting with complaints of lightheadedness and syncopal episode with momentary loss of consciousness. Patient states he was walking up steps felt lightheaded and fell, it was unwitnessed and awoke on the ground. He denies diaphoresis, chest pain, shortness of breath prior and states he had just been hanging out around the house. No strenuous activity prior. He is brought in by paramedics he did sustain a skin tear to his left upper extremity and abrasion on his forehead. There is some pain in the right clavicle and also right shoulder with limited range of motion. Patient had a CT of the brain and C-spine showing multiple old infarcts and cerebral atrophy left maxillary sinusitis and ethmoid sinusitis or spondylitic changes in the lower cervical spine with no fracture. Chest x-ray showing pulmonary interstitial edema similar to old exam with no pleural fluid seen to suggest heart failure, possibly chronic interstitial pneumonia. EKG shows a ventricular pacemaker heart rate in the 60s. He presents with a white count of 1.2, hemoglobin 6.0, hematocrit 19.0, neutrophils of 0.30, platelet count of 63. He has also sodium level 136, BUN 21, creatinine 1.00, albumin 3.4. Glucose is elevated at 177. Urine is showing 1+ protein with occasional mucus not suggestive of any urinary tract infection. He was admitted to the hospital with a consult with oncology/hematology services for further evaluation. Patient received 1 unit of packed red blood cells for hemoglobin of 6.0. He states he was diagnosed with MDS back in December through routine health screenings and was evaluated by oncology outpatient, follows with Dr. Whittaker. Was sent to the ER in back in may from hematology for low hemoglobin found in his work up for bone marrow biopsy which per he is not a candidate for bone marrow biopsy, which at that time was 4.9 and was transferred to [facility] for GI bleed. Patient states it was from "bleeding to much" although he denies rectal bleeding, hemetemesis. Per the patients he had significant nose bleeds which is a reason why he came off of the xarelto. The states he got 5 units of blood and 2 units of platelets there and did not get scoped. Had a previous colonoscopy in January of this year and there were no acute findings per . Was discharged with hemoglobin around 6 which per is his baseline. He is so mewhat of a poor historian unable to give the reason for being on the blood thinner. His syncopal episode is most likely from the anemia, orthostatics will be checked and his pacemaker will be interrogated for further investigation. Patients would like to speak with palliative care. Patient and family are denying transfer for GI and also to see surgical services for further evalauation to rule out GI bleed. 07/01/2022 Patient evaluated today sitting up in chair. Worked with physical therapy, significant weakness. Patient follows with Dr. Nunez out of of for cardiology services. He continues to monitored off xarelto. No signs for acute bleeding. Anemia is most secondary the MDS and currently the treatment patient and family are wishing to pursue is monitoring and blood transfusion although not a permanent solution. Xrays reviewed and there is sprain to the right shoulder AC joint and we will recommend at this point to alternate ice and heat and pain management is in place. He can see Dr. Hills outpatient for this. Sodium 134, potassium 3.7, BUN 16, creatinine 0.77, blood glucose 130s, calcium 8.0. Urine is negative for infection. Blood pressure today 145/69. 07/02/2022 Patient is being monitored closely on medical floor he is pending insurance authorization for discharge to [facility] for subacute rehab. Hemoglobin today is 7.7 and no signs of active bleeding this is most likely secondary to his known diagnosis of MDS and he will require frequent monitoring of his blood count with transfusions as needed. He did have a fall at home which prompted this hospital visit and he does have evidence of AP joint sprain right shoulder and he can follow up with orthopedics Dr. Hills on discharge who is known to patient. Recommending supportive care for this with rest ice and heat alternating and pain management. No acute events overnight. Sodium has improved to 136. Patient has been evaluated by palliative care services who will follow with patient on discharge. Blood pressure 111/63, afebrile, heart rate 61, 97% room air. Review of Systems Constitutional: Reports fatigue, generalized weakness, denied any fever. Cardio vascular: denied any chest pain, palpitations Gastrointestinal: denied any nausea, vomiting, diarrhea Pulmonary: Denied any shortness of breath cough Neurologic denied any new focal deficits All inpatient medications were reviewed and appropriate changes in these medications as dictated in the interval history and assessment and plan. PHYSICAL EXAMINATION: GENERAL: The patient is alert and oriented x3, not in any acute distress. Well d eveloped, well nourished. Somewhat fatigued. He appears stated age. HEENT: Pupils are round and equally reacting to light. EOMI. No scleral icterus. No conjunctival pallor. Normocephalic, atraumatic. No pharyngeal erythema. No thyromegaly. CARDIOVASCULAR: S1 and S2 present. No murmurs, rubs, or gallops. PULMONARY: Chest is clear to auscultation, no wheezing or crackles. ABDOMEN: Soft, nontender, nondistended, normoactive bowel sounds. No palpable organomegaly. MUSCULOSKELETAL: No joint swelling or deformity. EXTREMITIES: No cyanosis, clubbing, or pedal edema. Limited range of motion rights shoulder with significant pain. NEUROLOGICAL: Gross neurological examination did not reveal any focal deficits. SKIN: No rashes. Has abrasian across bridge of nose and forehead. Assessment and plan Assessment Lightheadedness and syncope possibly secondary to anemia from known diagnosis of myelodysplastic syndrome Syncope with fall/ trauma with right shoulder pain and limited range of motion there is evidence for right shoulder AC sprain found on imaging. Unable to rule out GI Bleed as contributing to anemia although there has been no reports of melena or hematemesis. Family and patient would not like to pursue any type of endoscopic procedure. Hgb has improved to 8.0 after 2 units of ID BCs. Hemoglobin today 7.7. Myelodysplastic disorder diagnosis in December of this year follows with oncology. Per family not a candidate for bone marrow biopsy. Recent admission at [facility] for low hemoglobin and received blood and platelet transfusion History stroke Carotid artery bypass many years ago History atrial fibrillation status post permanent pacemaker, was maintained on xarelto which he has been taken off of due to frequent episodes of epistaxis. Questionable history of valvular heart disease per family Sleep apnea Depressed affect Generalized weakness GI prophylaxis protonix DVT prophyalxis Deferred at this time secondary to low platelet and hemoglobin Full Code Plan Recommend alternating ice and heat to right shoulder with limited activity follow up with Dr. Marcos Hills outpatient for further evaluation Pain management in place Hematology/oncology consultation Continue with hemoglobin monitoring and transfuse blood for hgb <7 and platelet count <50. Per hematology recs patient can continue on xarelto if his platelet count is greater than 50. Current platelet count 54 PT/OT consultation recommending subacute rehab patient is agreeable and he is currently pending auth Further recommendations from hematology for now patient has opted for conservative management of MDS Palliative care has been consulted. The impression and plan of care has been dictated by Dejah Shetty, Nurse Practitioner as directed. Dr. Cassandra MD I have performed a history and physical examination and medical decision making of this patient, discussed the same with the dictator, and agree with the dictators assessment and plan as written, documented as a scribe. Based on total visit time, I have performed more than 50% of this visit. Objective - Vital Signs Vital signs: Vital Signs Temp 98.3 F 07/02/22 03:15 Pulse 74 07/02/22 03:15 Resp 16 07/02/22 03:15 BP 161/68 07/02/22 03:15 Pulse Ox 97 07/02/22 03:15 FiO2 Intake & Output 07/01/22 07/02/22 07/02/22 18:59 06:59 18:59 Intake Total 240 0 Balance 240 0 Intake: Oral 240 0 Other: Voiding Method Toilet Toilet - Labs CBC & Chem 7: 07/02/22 08:40 07/02/22 08:40 Labs: Abnormal Lab Results - Last 24 Hours (Table) 07/01/22 07/01/22 07/01/22 Range/Units 11:43 11:43 11:55 WBC 2.4 L (3.8-10.6) k/uL RBC 2.60 L (4.30-5.90) m/uL Hgb 8.0 L (13.0-17.5) gm/dL Hct 24.9 L (39.0-53.0) % RDW 21.4 H (11.5-15.5) % Plt Count 58 L (150-450) k/uL Lymphocytes # (Manual) 0.86 L (1.0-4.8) k/uL Metamyelocytes # (Man) 0.02 H (0) k/uL Nucleated RBCs 14 H (0-0) /100 WBC Sodium 134 L (137-145) mmol/L Glucose 120 H (74-99) mg/dL POC Glucose (mg/dL) 134 H (70-110) mg/dL Calcium 8.0 L (8.4-10.2) mg/dL 07/01/22 07/01/22 07/02/22 Range/Units 16:45 20:14 05:48 WBC (3.8-10.6) k/uL RBC (4.30-5.90) m/uL Hgb (13.0-17.5) gm/dL Hct (39.0-53.0) % RDW (11.5-15.5) % Plt Count (150-450) k/uL Lymphocytes # (Manual) (1.0-4.8) k/uL Metamyelocytes # (Man) (0) k/uL Nucleated RBCs (0-0) /100 WBC Sodium (137-145) mmol/L Glucose (74-99) mg/dL POC Glucose (mg/dL) 133 H 147 H 124 H (70-110) mg/dL Calcium (8.4-10.2) mg/dL 07/02/22 07/02/22 Range/Units 08:40 08:40 WBC 2.1 L (3.8-10.6) k/uL RBC 2.46 L (4.30-5.90) m/uL Hgb 7.7 L (13.0-17.5) gm/dL Hct 23.6 L (39.0-53.0) % RDW 21.4 H (11.5-15.5) % Plt Count 54 L (150-450) k/uL Lymphocytes # (Manual) (1.0-4.8) k/uL Metamyelocytes # (Man) (0) k/uL Nucleated RBCs (0-0) /100 WBC Sodium 136 L (137-145) mmol/L Glucose 108 H (74-99) mg/dL POC Glucose (mg/dL) (70-110) mg/dL Calcium 8.0 L (8.4-10.2) mg/dL Assessment and Plan Time with Patient: Less than 30
[2022-07-02 13:13] LABS: Band Neutrophils % 1 %; Metamyelocytes # (M) 0.02 k/uL (0); Metamyelocytes % 1 %; Myelocytes # (M) 0.04 k/uL (0); Myelocytes % 2 %; Neutrophils % (M) 53 %; Nucleated Red Blood Cells 5 /100 WBC (0-0); Total Cells Counted 200
[2022-07-02 13:14] LABS: Lymphocytes # (M) 0.78 k/uL (1.0-4.8)
[2022-07-02 13:15] LABS: Polychromasia Present
[2022-07-02 16:43] LABS: Glucose,Whole Blood 180 mg/dL (70-110)
[2022-07-02] MEDS ORDERED: ONDANSETRON 4 MG/2 ML VIAL IVP PRN (17:32)
[2022-07-02 19:58] LABS: Glucose,Whole Blood 189 mg/dL (70-110)
[2022-07-02] MEDS: ATORVASTATIN 20 MG TAB PO SCH (20:14)
[2022-07-03 06:01] LABS: Glucose,Whole Blood 141 mg/dL (70-110)
[2022-07-03] MEDS: INSULIN ASPART (NovoLOG) 100 UNIT/ML VIAL SQ SCH ×4 (06:05→20:40)
[2022-07-03] MEDS: traMADol 50 MG TAB PO PRN ×2 (08:34→15:27)
[2022-07-03] MEDS: PANTOPRAZOLE 40 MG/10 ML VIAL IVP SCH (08:35)
[2022-07-03] MEDS: LIDOCAINE 5% PATCH TOPICAL SCH (11:00)
[2022-07-03 11:51] LABS: Glucose,Whole Blood 155 mg/dL (70-110)
--- NOTE | 2022-07-03 12:11 | P.PN ---
Subjective Progress Note Date: 07/03/22 This is a 77-year-old male history of myelodysplastic syndrome, stroke, hyperlipidemia, sleep apnea, Carotid artery disease with bypass which was "on an artery that runs down his left neck", atrial fibrillation, pacemaker in 2016. 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 He has not had open heart surgery as per the recording medical history. Presenting with complaints of lightheadedness and syncopal episode with momentary loss of consciousness. Patient states he was walking up steps felt lightheaded and fell, it was unwitnessed and awoke on the ground. He denies diaphoresis, chest pain, shortness of breath prior and states he had just been hanging out around the house. No strenuous activity prior. He is brought in by paramedics he did sustain a skin tear to his left upper extremity and abrasion on his forehead. There is some pain in the right clavicle and also right shoulder with limited range of motion. Patient had a CT of the brain and C-spine showing multiple old infarcts and cerebral atrophy left maxillary sinusitis and ethmoid sinusitis or spondylitic changes in the lower cervical spine with no fracture. Chest x-ray showing pulmonary interstitial edema similar to old exam with no pleural fluid seen to suggest heart failure, possibly chronic interstitial pneumonia. EKG shows a ventricular pacemaker heart rate in the 60s. He presents with a white count of 1.2, hemoglobin 6.0, hematocrit 19.0, neutrophils of 0.30, platelet count of 63. He has also sodium level 136, BUN 21, creatinine 1.00, albumin 3.4. Glucose is elevated at 177. Urine is showing 1+ protein with occasional mucus not suggestive of any urinary tract infection. He was admitted to the hospital with a consult with oncology/hematology services for further evaluation. Patient received 1 unit of packed red blood cells for hemoglobin of 6.0. He states he was diagnosed with MDS back in December through routine health screenings and was evaluated by oncology outpatient, follows with Dr. Whittaker. Was sent to the ER in back in may from hematology for low hemoglobin found in his work up for bone marrow biopsy which per he is not a candidate for bone marrow biopsy, which at that time was 4.9 and was transferred to [facility] for GI bleed. Patient states it was from "bleeding to much" although he denies rectal bleeding, hemetemesis. Per the patients he had significant nose bleeds which is a reason why he came off of the xarelto. The states he got 5 units of blood and 2 units of platelets there and did not get scoped. Had a previous colonoscopy in January of this year and there were no acute findings per . Was discharged with hemoglobin around 6 which per is his baseline. He is so mewhat of a poor historian unable to give the reason for being on the blood thinner. His syncopal episode is most likely from the anemia, orthostatics will be checked and his pacemaker will be interrogated for further investigation. Patients would like to speak with palliative care. Patient and family are denying transfer for GI and also to see surgical services for further evalauation to rule out GI bleed. 07/01/2022 Patient evaluated today sitting up in chair. Worked with physical therapy, significant weakness. Patient follows with Dr. Nunez out of of for cardiology services. He continues to monitored off xarelto. No signs for acute bleeding. Anemia is most secondary the MDS and currently the treatment patient and family are wishing to pursue is monitoring and blood transfusion although not a permanent solution. Xrays reviewed and there is sprain to the right shoulder AC joint and we will recommend at this point to alternate ice and heat and pain management is in place. He can see Dr. Hills outpatient for this. Sodium 134, potassium 3.7, BUN 16, creatinine 0.77, blood glucose 130s, calcium 8.0. Urine is negative for infection. Blood pressure today 145/69. 07/02/2022 Patient is being monitored closely on medical floor he is pending insurance authorization for discharge to [facility] for subacute rehab. Hemoglobin today is 7.7 and no signs of active bleeding this is most likely secondary to his known diagnosis of MDS and he will require frequent monitoring of his blood count with transfusions as needed. He did have a fall at home which prompted this hospital visit and he does have evidence of AP joint sprain right shoulder and he can follow up with orthopedics Dr. Hills on discharge who is known to patient. Recommending supportive care for this with rest ice and heat alternating and pain management. No acute events overnight. Sodium has improved to 136. Patient has been evaluated by palliative care services who will follow with patient on discharge. Blood pressure 111/63, afebrile, heart rate 61, 97% room air. 07/03/2022 Patient continues with profound weakness and will work with PT again tomorrow and he is pending for DC to [facility]. Per oncology patient will require frequent monitoring and blood transfusions for MDS diagnosis. Patient is agreeing with this, he continues off xarelto for now as he was taken off prior to this admission due to epistaxis and will recommend he follows up outpatient with his primary care and certified family mediator regarding resuming xarelto. He does continue with significant pain to his right shoulder for this reason we did order supportive sling and lidocaine patch and patient requested to see orthopedics. Orthopedics input as patient will need subacute rehab. Blood pressure 144/48. Review of Systems Constitutional: Reports fatigue, generalized weakness, denied any fever. Cardio vascular: denied any chest pain, palpitations Gastrointestinal: denied any nausea, vomiting, diarrhea Pulmonary: Denied any shortness of breath cough Neurologic denied any new focal deficits All inpatient medications were reviewed and appropriate changes in these medications as dictated in the interval history and assessment and plan. PHYSICAL EXAMINATION: GENERAL: The patient is alert and oriented x3, not in any acute distress. Well developed, well nourished. Somewhat fatigued. He appears stated age. HEENT: Pupils are round and equally reacting to light. EOMI. No scleral icterus. No conjunctival pallor. Normocephalic, atraumatic. No pharyngeal erythema. No thyromegaly. CARDIOVASCULAR: S1 and S2 present. No murmurs, rubs, or gallops. PULMONARY: Chest is clear to auscultation, no wheezing or crackles. ABDOMEN: Soft, nontender, nondistended, normoactive bowel sounds. No palpable organomegaly. MUSCULOSKELETAL: No joint swelling or deformity. EXTREMITIES: No cyanosis, clubbing, or pedal edema. Limited range of motion rights shoulder with significant pain. There is tender nodule over right clavicle. NEUROLOGICAL: Gross neurological examination did not reveal any focal deficits. SKIN: No rashes. Has abrasian across bridge of nose and forehead. Assessment and plan Assessment Lightheadedness and syncope possibly secondary to anemia from known diagnosis of myelodysplastic syndrome Syncope with fall/ trauma with right shoulder pain and limited range of motion there is evidence for right shoulder AC sprain found on imaging. Unable to rule out GI Bleed as contributing to anemia although there has been no reports of melena or hematemesis. Family and patient would not like to pursue any type of endoscopic procedure. Hgb has improved to 8.0 after 2 units of PRBCs. Most recent hemoglobin 7.7. Myelodysplastic disorder diagnosis in December of this year follows with oncology. Per family not a candidate for bone marrow biopsy. Recent admission at [facility] for low hemoglobin and received blood and platelet transfusion History stroke Carotid artery bypass many years ago History atrial fibrillation status post permanent pacemaker, was maintained on xarelto which he has been taken off of due to frequent episodes of epistaxis. Questionable history of valvular heart disease per family Sleep apnea Depressed affect Generalized weakness GI prophylaxis protonix DVT prophyalxis Deferred at this time secondary to low platelet and hemoglobin Full Code Plan Recommend alternating ice and heat to right shoulder, immobilizer sling ordered and orthopedics has been consulted for further evaluation as patient continues to report significant pain. Pain management in place and also lidocaine patch has been ordered. Hematology/oncology consultation Continue with hemoglobin monitoring and transfuse blood for hgb <7 and platelet count <50. Per hematology recs patient can continue on xarelto if his platelet count is greater than 50. Current platelet count 54 and will defer to outpatient follow up with primary care and cardiology for resumption of xarelto as patient was recently taken off this medication outpatient prior to admission for frequent episodes of epistaxis. PT/OT consultation recommending subacute rehab patient is agreeable and he is currently pending auth Further recommendations from hematology for now patient has opted for conservative management of MDS Palliative care has been consulted. The impression and plan of care has been dictated by Dejah Shetty, Nurse Practitioner as directed. Dr. Cassandra MD I have performed a history and physical examination and medical decision making of this patient, discussed the same with the dictator, and agree with the dictators assessment and plan as written, documented as a scribe. Based on total visit time, I have performed more than 50% of this visit. Objective - Vital Signs Vital signs: Vital Signs Temp 98.3 F 07/03/22 03:20 Pulse 65 07/03/22 03:20 Resp 18 07/03/22 03:20 BP 144/48 07/03/22 03:20 Pulse Ox 95 07/03/22 03:20 FiO2 Intake & Output 07/02/22 07/03/22 07/03/22 18:59 06:59 18:59 Intake Total 237 0 Balance 237 0 Intake: Oral 237 0 Other: Voiding Method Toilet Toilet # Voids 2 # Bowel Movements 1 - Labs CBC & Chem 7: 07/02/22 08:40 07/02/22 08:40 Labs: Abnormal Lab Results - Last 24 Hours (Table) 07/02/22 07/02/22 07/02/22 Range/Units 08:40 16:41 19:57 WBC 2.0 L (3.8-10.6) k/uL Neutrophils # (Manual) 1.00 L (1.3-7.7) k/uL Lymphocytes # (Manual) 0.78 L (1.0-4.8) k/uL Metamyelocytes # (Man) 0.02 H (0) k/uL Myelocytes # (Manual) 0.04 H (0) k/uL Nucleated RBCs 5 H (0-0) /100 WBC POC Glucose (mg/dL) 180 H 189 H (70-110) mg/dL 07/03/22 07/03/22 Range/Units 05:59 11:50 WBC (3.8-10.6) k/uL Neutrophils # (Manual) (1.3-7.7) k/uL Lymphocytes # (Manual) (1.0-4.8) k/uL Metamyelocytes # (Man) (0) k/uL Myelocytes # (Manual) (0) k/uL Nucleated RBCs (0-0) /100 WBC POC Glucose (mg/dL) 141 H 155 H (70-110) mg/dL Assessment and Plan Time with Patient: Less than 30
[2022-07-03] MEDS: HYDROcodone/APAP 7.5-325MG 1 EACH TAB PO PRN ×2 (12:34→20:06)
[2022-07-03 16:20] LABS: Glucose,Whole Blood 146 mg/dL (70-110)
--- NOTE | 2022-07-03 18:06 | P.CNOR ---
History of Present Illness - [facility] Consult date: 07/03/22 Consult reason: other (Right shoulder pain ) History of present illness: The patient is a 77-year-old male history of myelodysplastic syndrome, CVA, hyperlipidemia, sleep apnea, CAD with bypass, atrial fibrillation, pacemaker in 2016, who presented to the emergency department after sustaining a fall at home. He states her was walking up steps at home and felt lightheaded. He did lose consciousness. X-rays were taken in the ER and a head and neck CT was preformed. No bleed or fracture was seen. He found to have right shoulder pain. A possible AC joint separation was noted on x-rays. He continues to have pain in the shoulder and orthopedics was consulted for further evaluation and treatment. He has healing abrasion and bruising on his face. No other injuries noted. Review of Systems Constitutional: Denies chills, Denies fatigue, Denies fever Cardiovascular: Denies chest pain, Denies shortness of breath Respiratory: Denies cough Gastrointestinal: Denies diarrhea, Denies nausea, Denies vomiting Musculoskeletal: right: shoulder pain, shoulder stiffness, shoulder swelling Past Medical History Past Medical History: Coronary Artery Disease (CAD), CVA/TIA, Hyperlipidemia, Sleep Apnea/CPAP/BIPAP Additional Past Medical History / Comment(s): MDS History of Any Multi-Drug Resistant Organisms: None Reported Past Surgical History: Coronary Bypass/CABG, Orthopedic Surgery, Pacemaker, Tonsillectomy Additional Past Surgical History / Comment(s): left shoulder surgery, CABG 15 yr ago, evelyn cataracts Past Anesthesia/Blood Transfusion Reactions: No Reported Reaction Type of Cardiac Device: Permanent Pacemaker Device Placement Date:: Past Psychological History: No Psychological Hx Reported Smoking Status: Former smoker Past Alcohol Use History: Rare Additional Past Alcohol Use History / Comment(s): quit smoking about 15 yrs ago Past Drug Use History: None Reported - Past Family History Mother Family Medical History: No Reported History Medications and Allergies Home Medications Medication Instructions Recorded Confirmed Type Metoprolol Succinate [Toprol XL] 25 mg PO TID 05/06/21 06/29/22 History Simvastatin [Zocor] 40 mg PO HS 05/06/21 06/29/22 History Dulaglutide [Trulicity] 0.75 mg SQ DENNIS 12/09/21 06/29/22 History Furosemide [Lasix] 40 mg PO DAILY 06/29/22 06/29/22 History Potassium Gluconate [Potassium 99 mg PO DAILY 06/29/22 06/29/22 History Gluconate ER] Famotidine [Pepcid] 20 mg PO DAILY #30 tablet 07/04/22 Rx HYDROcodone/APAP 7.5-325MG [[place] 1 each PO Q6HR PRN #4 tab 07/04/22 Rx 7.5-325] INSULIN ASPART (NovoLOG) [NovoLOG 0 unit SQ ACHS each 07/04/22 Rx (formulary)] Lidocaine 5% Patch [Lidoderm 5% 1 patch TOPICAL DAILY patch 07/04/22 Rx Patch] traMADol HCl [Ultram] 50 mg PO QID PRN #4 tab 07/04/22 Rx Allergies Allergy/AdvReac Type Severity Reaction Status Date / Time No Known Allergies Allergy Verified 06/29/22 19:51 Physical Examination Osteopathic Statement: *. No significant issues noted on an osteopathic structural exam other than those noted in the History and Physical/Consult. The patient is in no acute distress. He is alert and oriented x3. Exam of the right shoulder reveals swelling to the sternoclavicular joint. No other obvious deformities present. Pain to palpation of the SC joint, AC joint, mid-shaft clavicle, and posterior shoulder/scapula. ROM of the shoulder was not tested. No pain to the elbow or wrist/hand on the right. Neurological and circulatory status is intact. Results X-rays of the right shoulder, chest, clavicle, and scapula were reviewed. No acute fractures seen. - Labs Labs: Abnormal Lab Results - Last 24 Hours (Table) 07/02/22 07/03/22 07/03/22 Range/Units 19:57 05:59 11:50 POC Glucose (mg/dL) 189 H 141 H 155 H (70-110) mg/dL 07/03/22 Range/Units 16:19 POC Glucose (mg/dL) 146 H (70-110) mg/dL H & H 06/29/22 06/30/22 07/01/22 Range/Units 17:15 10:14 11:43 Hgb 6.0 L* 6.6 L* 8.0 L (13.0-17.5) gm/dL Hct 19.0 L* 20.4 L 24.9 L (39.0-53.0) % 07/02/22 Range/Units 08:40 Hgb 7.7 L (13.0-17.5) gm/dL Hct 23.6 L (39.0-53.0) % Result Diagrams: 07/05/22 09:53 07/02/22 08:40 Assessment and Plan (1) Right shoulder pain Status: Acute Code(s): M25.511 - PAIN IN RIGHT SHOULDER SNOMED Code(s): 4 5647947 (2) MDS (myelodysplastic syndrome) Status: Acute Priority: High Code(s): D46.9 - MYELODYSPLASTIC SYNDROME, UNSPECIFIED SNOMED Code(s): 432482450 (3) Syncope Status: Acute Code(s): R55 - SYNCOPE AND COLLAPSE SNOMED Code(s): 345357845 (4) Sternoclavicular (joint) (ligament) sprain Status: Acute Code(s): S43.60XA - SPRAIN OF UNSPECIFIED STERNOCLAVICULAR JOINT, INIT ENCNTR SNOMED Code(s): 486917367 Plan: The clinical and x-rays were discussed with the patient. The patient was also examined by Dr. Clark. No surgical intervention is planned. He will continue in sling for comfort. He may be out of the sling if he wants. Continue range of m otion of the elbow and wrist/hand as tolerated. He will follow up with Dr. Hills in the office as an outpatient upon discharge. He is orthopedically stable for discharge. Patient seen and examined with Tara. Agree with above. He has tenderness along the clavicle and AC joint but no obvious fracture. He has swelling and some TTP to the SC joint as well. The prominance is pretty similar to the contralateral side. No surgical intervention planned.
[2022-07-03] MEDS: ATORVASTATIN 20 MG TAB PO SCH (20:06)
[2022-07-03 20:29] LABS: Glucose,Whole Blood 130 mg/dL (70-110)
[2022-07-04] MEDS: INSULIN ASPART (NovoLOG) 100 UNIT/ML VIAL SQ SCH ×4 (06:31→20:41)
[2022-07-04 06:32] LABS: Glucose,Whole Blood 137 mg/dL (70-110)
[2022-07-04 07:59] LABS: Anisocytosis Moderate; HCT 21.8 % (39.0-53.0); HGB 7.1 gm/dL (13.0-17.5); Hypochromasia Marked; MCH 31.7 pg (25.0-35.0); MCHC 32.7 g/dL (31.0-37.0); MCV 96.9 fL (80.0-100.0); Macrocytosis Slight; Mean Platelet Volume 10.8; Poikilocytosis Marked; RBC 2.25 m/uL (4.30-5.90); RDW 20.2 % (11.5-15.5); WBC 2.3 k/uL (3.8-10.6)
[2022-07-04 08:11] LABS: Platelet Count 54 k/uL (150-450)
[2022-07-04] MEDS: PANTOPRAZOLE 40 MG/10 ML VIAL IVP SCH (08:46)
[2022-07-04 08:57] LABS: Glucose,Whole Blood 132 mg/dL (70-110)
[2022-07-04 11:35] LABS: Glucose,Whole Blood 149 mg/dL (70-110)
--- NOTE | 2022-07-04 14:01 | P.DS ---
Providers Date of admission: 07/01/22 08:38 Attending physician: Gabe Landers Consults: 06/29/22 19:29 Consult Physician Routine Consulting Provider: Wilton Whittaker Consult Reason/Comments: MDS, anemia Do you want consulting provider notified?: Yes 06/30/22 13:28 Consult to Palliative Care Routine Consulting Provider: Hillary Lindo Consult Reason/Comments: goals of care Do you want consulting provider notified?: Yes 07/03/22 11:15 Consult Physician Routine Consulting Provider: Marcos Hills Consult Reason/Comments: Right shoulder AP joint possible sprain, clavicle fracture Do you want consulting provider notified?: Yes Primary care physician: Nathanael Ellis Hospital Course: Final Diagnosis Lightheadedness and syncope possibly secondary to anemia from known diagnosis of myelodysplastic syndrome Syncope with fall/ trauma with right shoulder pain and limited range of motion there is evidence for right shoulder AC sprain found on imaging. Unable to rule out GI Bleed as contributing to anemia although there has been no reports of melena or hematemesis. Family and patient would not like to pursue any type of endoscopic procedure. Hgb has improved to 8.0 after 2 units of PRBCs. Most recent hemoglobin 7.1. Myelodysplastic disorder diagnosis in December of this year follows with oncology. Per family not a candidate for bone marrow biopsy. Recent admission at [facility] for low hemoglobin and received blood and platelet transfusion History stroke Carotid artery bypass many years ago History atrial fibrillation status post permanent pacemaker, was maintained on xarelto which he has been taken off of due to frequent episodes of epistaxis. Questionable history of valvular heart disease per family Sleep apnea Depressed affect Generalized weakness Full Code Discharge Disposition Patient is stable for discharge to subacute rehab today. He has a follow up made at oncology office on for follow up CBC. He does require blood transfusions as needed. Continues off xarelto which was discontinued prior to admission by his family doctor. Patient to follow up with his PCP and also his washer assembler Dr Nunez out of [facility]. He is also recommended to see Dr. Hills on follow up within 1 week for further evaluation of right shoulder AP sprain. Hospital Course This is a 77-year-old male history of myelodysplastic syndrome, stroke, hyperlipidemia, sleep apnea, Carotid artery disease with bypass which was "on an artery that runs down his left neck", atrial fibrillation, pacemaker in 2016. 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 Presenting with complaints of lig htheadedness and syncopal episode with momentary loss of consciousness. Patient states he was walking up steps felt lightheaded and fell, it was unwitnessed and awoke on the ground. He denies diaphoresis, chest pain, shortness of breath prior and states he had just been hanging out around the house. No strenuous activity prior. He is brought in by paramedics he did sustain a skin tear to his left upper extremity and abrasion on his forehead. There is some pain in the right clavicle and also right shoulder with limited range of motion. Patient had a CT of the brain and C-spine showing multiple old infarcts and cerebral atrophy left maxillary sinusitis and ethmoid sinusitis or spondylitic changes in the lower cervical spine with no fracture. Chest x-ray showing pulmonary interstitial edema similar to old exam with no pleural fluid seen to suggest heart failure, possibly chronic interstitial pneumonia. EKG shows a ventricular pacemaker heart rate in the 60s. He presents with a white count of 1.2, hemoglobin 6.0, hematocrit 19.0, neutrophils of 0.30, platelet count of 63. He was admitted to the hospital with a consult with oncology/hematology services for further evaluation. Patient received 1 unit of packed red blood cells for hemoglobin of 6.0. He states he was diagnosed with MDS back in December through routine health screenings and was evaluated by oncology outpatient, follows with Dr. Whittaker. Was sent to the ER in back in may from hematology for low hemoglobin found in his work up for bone marrow biopsy which per he is not a candidate for bone marrow biopsy, which at that time was 4.9 and was transferred to [facility] for GI bleed. Patient states it was from "bleeding to much" although he denies rectal bleeding, hemetemesis. Per the patients he had significant nose bleeds which is a reason why he came off of the xarelto. The states he got 5 units of blood and 2 units of platelets there and did not get scoped. Had a previous colonoscopy in January of this year and there were no acute findings per . Was discharged with hemoglobin around 6 which per is his baseline. He is somewhat of a poor historian unable to give the reason for being on the blood thinner. His syncopal episode is most likely from the anemia, orthostatics will be checked and his pacemaker will be interrogated for further investigation. Patients would like to speak with palliative care. Patient and family are denying transfer for GI and also to see surgical services for further evalauation to rule out GI bleed. Patient is monitored closely after receiving 1 unit of packed red cells and hgb currently 7.1 Has an appointment at oncology for repeat CBC in 10 days. He will be discharge to subacute rehab. Recommendations in place from orthopedics for discharge. 07/04/2022 Patient evaluated today resting in bed. at bedside. Hgb today 7.1 which is normal for him. He usually runs around 6.0 per . Oncology has cleared and patient to follow up in the office on discharge, an appointment has been made. Orthopedics has evaluated patient post fall secondary to right AP joint shoulder sprain with conservative management and outpatient follow up. Continue with pain managment currently patient can wear sling for comfort but he does not have to wear. He has significant skin tear to his right hand and also bridge of nose abrasaion. There are multiple others secondary to fall with trauma. Local wound care with triple antibiotic ointment and LONA wrap if needed. Otherwise they are scabbed and can be left open to air. His lungs are clear, S1 S2 auscultated abdomen is soft and nontender. No signs for acute active bleeding at this time. Patient is afebrile, heart rate 59, blood pressure 129/66, 99% room air. Focal neurological exam is negative. Please see medication reconciliation for a list of current medication. Thank you for allowing us to participate in the care of this patient. The impression and plan of care has been dictated by Dejah Shetty, Nurse Practitioner as directed. Dr. Cassandra MD I have performed a history and physical examination and medical decision making of this patient, discussed the same with the dictator, and agree with the dictators assessment and plan as written, documented as a scribe. Based on total visit time, I have performed more than 50% of this visit. Patient Condition at Discharge: Fair Plan - Discharge Summary New Discharge Prescriptions: New Lidocaine 5% Patch [Lidoderm 5% Patch] 1 patch TOPICAL DAILY patch Famotidine [Pepcid] 20 mg PO DAILY #30 tablet HYDROcodone/APAP 7.5-325MG [[place] 7.5-325] 1 each PO Q6HR PRN #4 tab PRN Reason: Severe Pain INSULIN ASPART (NovoLOG) [NovoLOG (formulary)] 0 unit SQ ACHS each traMADol HCl [Ultram] 50 mg PO QID PRN #4 tab PRN Reason: Moderate pain Continue Simvastatin [Zocor] 40 mg PO HS Metoprolol Succinate [Toprol XL] 25 mg PO TID Furosemide [Lasix] 40 mg PO DAILY Dulaglutide [Trulicity] 0.75 mg SQ DENNIS Potassium Gluconate [Potassium Gluconate ER] 99 mg PO DAILY Discharge Medication List Metoprolol Succinate [Toprol XL] 25 mg PO TID 05/06/21 [History] Simvastatin [Zocor] 40 mg PO HS 05/06/21 [History] Dulaglutide [Trulicity] 0.75 mg SQ DENNIS 12/09/21 [History] Furosemide [Lasix] 40 mg PO DAILY 06/29/22 [History] Potassium Gluconate [Potassium Gluconate ER] 99 mg PO DAILY 06/29/22 [History] Famotidine [Pepcid] 20 mg PO DAILY #30 tablet 07/04/22 [Rx] HYDROcodone/APAP 7.5-325MG [[place] 7.5-325] 1 each PO Q6HR PRN #4 tab 07/04/22 [Rx] INSULIN ASPART (NovoLOG) [NovoLOG (formulary)] 0 unit SQ ACHS each 07/04/22 [Rx] Lidocaine 5% Patch [Lidoderm 5% Patch] 1 patch TOPICAL DAILY patch 07/04/22 [Rx] traMADol HCl [Ultram] 50 mg PO QID PRN #4 tab 07/04/22 [Rx] Follow up Appointment(s)/Referral(s): Nathanael Ellis MD [Primary Care Provider] - 1-2 days Albertina Pedraza NPC [Nurse Practitioner] - 07/14/22 2:45 pm Gianfranco Pascal MD [STAFF PHYSICIAN] - Marcos Hills MD [STAFF PHYSICIAN] - 1 Week (Follow up for sprain for AC joint right sided secondary to fall ) Activity/Diet/Wound Care/Special Instructions: Patient will be transferred to [facility] for subacute rehab He will need frequent monitoring of his blood counts secondary to diagnosis of MDS , He will require transfusions as needed Patient has an appointment scheduled at oncology office for repeat CBC on 07/14 at 245 pm. May wear arm sling for comfort, he does not have to Patient to follow up with Dr. Hills in the office on discharge Continue with pain medication as scheduled Follow up with your washer assembler on discharge Follow up with primary care provider regarding resuming xarelto Discharge Disposition: TRANSFER TO SNF/ECF
[2022-07-04] MEDS: LIDOCAINE 5% PATCH TOPICAL SCH (16:21)
[2022-07-04 16:45] LABS: Glucose,Whole Blood 186 mg/dL (70-110)
[2022-07-04 20:17] LABS: Glucose,Whole Blood 173 mg/dL (70-110)
[2022-07-04] MEDS: ATORVASTATIN 20 MG TAB PO SCH (20:35)
[2022-07-05 06:16] LABS: Glucose,Whole Blood 159 mg/dL (70-110)
[2022-07-05] MEDS: INSULIN ASPART (NovoLOG) 100 UNIT/ML VIAL SQ SCH ×2 (06:43→12:38)
[2022-07-05] MEDS: LIDOCAINE 5% PATCH TOPICAL SCH (09:50)
[2022-07-05] MEDS: PANTOPRAZOLE 40 MG/10 ML VIAL IVP SCH (09:50)
[2022-07-05 10:22] LABS: Anisocytosis Slight; HCT 22.4 % (39.0-53.0); HGB 7.5 gm/dL (13.0-17.5); Hypochromasia Marked; MCH 32.2 pg (25.0-35.0); MCHC 33.4 g/dL (31.0-37.0); MCV 96.6 fL (80.0-100.0); Macrocytosis Slight; Poikilocytosis Marked; RBC 2.32 m/uL (4.30-5.90); RDW 19.9 % (11.5-15.5); WBC 2.3 k/uL (3.8-10.6)
[2022-07-05 10:23] LABS: Platelet Count 72 k/uL (150-450)
[2022-07-05 11:25] VITALS: BP 122/63; PULSE 63; RESP 15; TEMP 99.3
[2022-07-05 11:52] LABS: Glucose,Whole Blood 157 mg/dL (70-110)
--- NOTE | 2022-07-05 12:30 | P.PN ---
Subjective Progress Note Date: 07/05/22 Principal diagnosis: Syncope, Anemia The patient is a 77-year-old male history of myelodysplastic syndrome, stroke, hyperlipidemia, sleep apnea, CAD, CABG, DM II, atrial fibrillation, pacemaker in 2016. Presenting with complaints of lightheadedness and syncopal episode with momentary loss of consciousness. Patient states he was walking up steps felt lightheaded and fell, it was unwitnessed and awoke on the ground. He denies diaphoresis, chest pain, shortness of breath prior and states he had just been hanging out around the house. No strenuous activity prior. He is brought in by paramedics he did sustain a skin tear to his left upper extremity and abrasion on his forehead. There is some pain in the right clavicle and also right shoulder with limited range of motion. Patient had a CT of the brain and C-spine showing multiple old infarcts and cerebral atrophy left maxillary sinusitis and ethmoid sinusitis or spondylitic changes in the lower cervical spine with no fra cture. Chest x-ray showing pulmonary interstitial edema similar to old exam with no pleural fluid seen to suggest heart failure, possibly chronic interstitial pneumonia. EKG shows a ventricular pacemaker heart rate in the 60s. He presented with a white count of 1.2, hemoglobin 6.0, hematocrit 19.0, neutrophils of 0.30, platelet count of 63. He has also sodium level 136, BUN 21, creatinine 1.00, albumin 3.4. Urine is not suggestive of any urinary tract infection. He was admitted to the hospital with a consult with oncology/hematology services for further evaluation. Patient has received 2 u nits of packed red blood cells for hemoglobin of 6.0. Per oncology, the patient and have had 4 lengthy discussions with Providers since December 2021 re: diagnosis, prognosis, treatment options. He has opted for supportive transfusions only and has been in office weekly for CBC and transfusions PRN. It has been explained that transfusions are temporary fix for low Hgb and plt. Typically transfused products will last 7-10 days. They do not treat the underlying problem. He will be transfusion dependent the rest of his life. He also understands that his MDS can transform into other hematological diseases, such as acute leukemia. The patient has been offered treatment previously and has declined. Patient and family are denying transfer for GI and also to see surgical services for further evalauation to rule out GI bleed. 07/01 The patient is sitting up in the chair. Met with the patient, his , and his son. Education regarding his MDS was provided. Palliative care and hos pice philosophies and services explained. The patient stated he wanted to continue with his supportive treatments for now, he wants to continue receiving transfusions as needed. He is not ready for hospice yet. His goal is to gain some strength back at rehab. He understands that there is not a cure for his underlying disease. Per oncology he will need transfusions for the rest of his life. The patient and his did agree to palliative care a an eventual bridge to hospice. Objective - Vital Signs Vital signs: Vital Signs Temp 99.3 F 07/05/22 11:24 Pulse 63 07/05/22 11:24 Resp 15 07/05/22 11:24 BP 122/63 07/05/22 11:24 Pulse Ox 95 07/05/22 11:24 FiO2 Intake & Output 07/04/22 07/05/22 07/05/22 18:59 06:59 18:59 Weight 77.111 kg Other: Voiding Method Toilet Toilet Toilet # Voids 1 2 # Bowel Movements 1 - Exam General: Well developed, well nourished. No acute distress. Chronically ill appearing HEENT: Head is atraumatic, normocephalic. Mucus membranes moist. CV: Heart regular in rate and rhythm positive S1 and S2. Peripheral pulses equal. 2/4 Lungs: Clear to auscultation bilaterally. No wheezes rales or rhonchi. Respirations even and nonlabored. Abdomen/GI: Soft. Bowel sounds present in all 4 quadrants.No guarding, rigidity, or abdominal tenderness. Musculoskeletal/ Extremities: OWEN, no joint deformity or swelling. No gross atrophy. + generalized weakness, Right UE limited ROM 2/2 shoulder pain Vascular: Radial pulses equal. 2/4. No peripheral edema Skin: Warm and dry, Abrasion to bridge of nose and forehead. Neurologic: Awake, alert and oriented times 3. CN II-XII grossly intact. No foc al deficits. Psychiatric: Appropriate mood and affect. - Labs CBC & Chem 7: 07/05/22 09:53 07/02/22 08:40 Labs: Abnormal Lab Results - Last 24 Hours (Table) 1007/04/22 07/05/22 Range/Units 16:42 20:16 06:14 WBC (3.8-10.6) k/uL RBC (4.30-5.90) m/uL Hgb (13.0-17.5) gm/dL Hct (39.0-53.0) % RDW (11.5-15.5) % Plt Count (150-450) k/uL POC Glucose (mg/dL) 186 H 173 H 159 H (70-110) mg/dL 07/05/22 07/05/22 Range/Units 09:53 11:51 WBC 2.3 L (3.8-10.6) k/uL RBC 2.32 L (4.30-5.90) m/uL Hgb 7.5 L (13.0-17.5) gm/dL Hct 22.4 L (39.0-53.0) % RDW 19.9 H (11.5-15.5) % Plt Count 72 L (150-450) k/uL POC Glucose (mg/dL) 157 H (70-110) mg/dL Assessment and Plan Assessment: Symptoms * Pain - 5/10 right clavicle/shoulder pain, Continue [place], Dilaudid, and Tylenol * Fatigue - + generalized weakness and fatigue * SOB - No * Insomnia - No * N/V - No * Anxiety - No * Depression -No * Confusion - No * Agitation - No * Hallucinations - No * Appetite/weight loss - No recent weight loss, + poor appetite. Continue Regular diet with nutritional supplement TID with meals * Dysphagia -No * Constipation - No * Incontinence - No * Itch - No Plan: Summary/Goals - The patient is still waiting to go to rehab. Per disease case manager, authorization has been received. Plan is to transfer to [facility] to [facility]. Recommendations - Discharge to rehab with OP palliative care Advanced Directives - None on file Code Status - Full Code Thank you for this consultation Hillary Lindo [facility] [id number] Email: [email or web address]. Time with Patient: Less than 30
--- NOTE | 2022-07-05 16:11 | P.DS ---
Providers Date of admission: 07/01/22 08:38 Attending physician: Gabe Landers Consults: 06/29/22 19:29 Consult Physician Routine Consulting Provider: Wilton Whittaker Consult Reason/Comments: MDS, anemia Do you want consulting provider notified?: Yes 06/30/22 13:28 Consult to Palliative Care Routine Consulting Provider: Hillary Lindo Consult Reason/Comments: goals of care Do you want consulting provider notified?: Yes 07/03/22 11:15 Consult Physician Routine Consulting Provider: Marcos Hills Consult Reason/Comments: Right shoulder AP joint possible sprain, clavicle fracture Do you want consulting provider notified?: Yes Primary care physician: Nathanael Ellis Hospital Course: Final Diagnosis Lightheadedness and syncope possibly secondary to anemia from known diagnosis of myelodysplastic syndrome Syncope with fall/ trauma with right shoulder pain and limited range of motion there is evidence for right shoulder AC sprain found on imaging. Unable to rule out GI Bleed as contributing to anemia although there has been no reports of melena or hematemesis. Family and patient would not like to pursue any type of endoscopic procedure. Hgb has improved to 8.0 after 2 units of PRBCs. Most recent hemoglobin 7.1. Myelodysplastic disorder diagnosis in December of this year follows with oncology. Per family not a candidate for bone marrow biopsy. Recent admission at [facility] for low hemoglobin and received blood and platelet transfusion History stroke Carotid artery bypass many years ago History atrial fibrillation status post permanent pacemaker, was maintained on xarelto which he has been taken off of due to frequent episodes of epistaxis. Questionable history of valvular heart disease per family Sleep apnea Depressed affect Generalized weakness Full Code Discharge Disposition Patient is stable for discharge to subacute rehab today. He has a follow up made at oncology office on for follow up CBC. He does require blood transfusions as needed. Continues off xarelto which was discontinued prior to admission by his family doctor. Patient to follow up with his PCP and also his transfer machine operator Dr Nunez out of [facility]. He is also recommended to see Dr. Hills on follow up within 1 week for further evaluation of right shoulder AP sprain. Hospital Course This is a 77-year-old male history of myelodysplastic syndrome, stroke, hyperlipidemia, sleep apnea, Carotid artery disease with bypass which was "on an artery that runs down his left neck", atrial fibrillation, pacemaker in 2016. 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 Presenting with complaints of lig htheadedness and syncopal episode with momentary loss of consciousness. Patient states he was walking up steps felt lightheaded and fell, it was unwitnessed and awoke on the ground. He denies diaphoresis, chest pain, shortness of breath prior and states he had just been hanging out around the house. No strenuous activity prior. He is brought in by paramedics he did sustain a skin tear to his left upper extremity and abrasion on his forehead. There is some pain in the right clavicle and also right shoulder with limited range of motion. Patient had a CT of the brain and C-spine showing multiple old infarcts and cerebral atrophy left maxillary sinusitis and ethmoid sinusitis or spondylitic changes in the lower cervical spine with no fracture. Chest x-ray showing pulmonary interstitial edema similar to old exam with no pleural fluid seen to suggest heart failure, possibly chronic interstitial pneumonia. EKG shows a ventricular pacemaker heart rate in the 60s. He presents with a white count of 1.2, hemoglobin 6.0, hematocrit 19.0, neutrophils of 0.30, platelet count of 63. He was admitted to the hospital with a consult with oncology/hematology services for further evaluation. Patient received 1 unit of packed red blood cells for hemoglobin of 6.0. He states he was diagnosed with MDS back in December through routine health screenings and was evaluated by oncology outpatient, follows with Dr. Whittaker. Was sent to the ER in back in may from hematology for low hemoglobin found in his work up for bone marrow biopsy which per he is not a candidate for bone marrow biopsy, which at that time was 4.9 and was transferred to [facility] for GI bleed. Patient states it was from "bleeding to much" although he denies rectal bleeding, hemetemesis. Per the patients he had significant nose bleeds which is a reason why he came off of the xarelto. The states he got 5 units of blood and 2 units of platelets there and did not get scoped. Had a previous colonoscopy in January of this year and there were no acute findings per . Was discharged with hemoglobin around 6 which per is his baseline. He is somewhat of a poor historian unable to give the reason for being on the blood thinner. His syncopal episode is most likely from the anemia, orthostatics will be checked and his pacemaker will be interrogated for further investigation. Patients would like to speak with palliative care. Patient and family are denying transfer for GI and also to see surgical services for further evalauation to rule out GI bleed. Patient is monitored closely after receiving 1 unit of packed red cells and hgb currently 7.1 Has an appointment at oncology for repeat CBC in 10 days. He will be discharge to subacute rehab. Recommendations in place from orthopedics for discharge. 07/04/2022 Patient evaluated today resting in bed. at bedside. Hgb today 7.1 which is normal for him. He usually runs around 6.0 per . Oncology has cleared and patient to follow up in the office on discharge, an appointment has been made. Orthopedics has evaluated patient post fall secondary to right AP joint shoulder sprain with conservative management and outpatient follow up. Continue with pain managment currently patient can wear sling for comfort but he does not have to wear. He has significant skin tear to his right hand and also bridge of nose abrasaion. There are multiple others secondary to fall with trauma. Local wound care with triple antibiotic ointment and LONA wrap if needed. Otherwise they are scabbed and can be left open to air. His lungs are clear, S1 S2 auscultated abdomen is soft and nontender. No signs for acute active bleeding at this time. Patient is afebrile, heart rate 59, blood pressure 129/66, 99% room air. Focal neurological exam is negative. 07/05/2022 Patient is sitting up in chair today. He reports improvement in overall pain. He is receiving alternating norco and tramadol and additionally has lidocaine patch placed to right posterior shoulder. His plan is to continue to following with oncology for CBC monitoring and blood transfusions as needed. He is not ready for hospice. He has been recommended for non weight bearing to that right arm per orthopedics. He will see Dr. Hills in the office on discharge. Hemoglobin today 7.5, stable. Recommend to repeat CBC at his next oncology appointment on 07/14. Denies shortness of breath, denies chest pain. Lungs are clear, S1 S2 auscultated, abdomen is soft and nontender. His skin tears are healing, there are no open or bleeding areas currently. Blood pressure 122/63, afebrile, heart rate 63, 95% on room air. Please see medication reconciliation for a list of current medication. Thank you for allowing us to participate in the care of this patient. The impression and plan of care has been dictated by Dejah Shetty, Nurse Practitioner as directed. Dr. Cassandra MD I have performed a history and physical examination and medical decision making of this patient, discussed the same with the dictator, and agree with the dictators assessment and plan as written, documented as a scribe. Based on total visit time, I have performed more than 50% of this visit. Patient Condition at Discharge: Fair Plan - Discharge Summary New Discharge Prescriptions: New Lidocaine 5% Patch [Lidoderm 5% Patch] 1 patch TOPICAL DAILY patch Famotidine [Pepcid] 20 mg PO DAILY #30 tablet HYDROcodone/APAP 7.5-325MG [Byers 7.5-325] 1 each PO Q6HR PRN #4 tab PRN Reason: Severe Pain INSULIN ASPART (NovoLOG) [NovoLOG (formulary)] 0 unit SQ ACHS each traMADol HCl [Ultram] 50 mg PO QID PRN #4 tab PRN Reason: Moderate pain Continue Simvastatin [Zocor] 40 mg PO HS Metoprolol Succinate [Toprol XL] 25 mg PO TID Furosemide [Lasix] 40 mg PO DAILY Dulaglutide [Trulicity] 0.75 mg SQ DENNIS Potassium Gluconate [Potassium Gluconate ER] 99 mg PO DAILY Discharge Medication List Metoprolol Succinate [Toprol XL] 25 mg PO TID 05/06/21 [History] Simvastatin [Zocor] 40 mg PO HS 05/06/21 [History] Dulaglutide [Trulicity] 0.75 mg SQ DENNIS 12/09/21 [History] Furosemide [Lasix] 40 mg PO DAILY 06/29/22 [History] Potassium Gluconate [Potassium Gluconate ER] 99 mg PO DAILY 06/29/22 [History] Famotidine [Pepcid] 20 mg PO DAILY #30 tablet 07/04/22 [Rx] HYDROcodone/APAP 7.5-325MG [Byers 7.5-325] 1 each PO Q6HR PRN #4 tab 07/04/22 [Rx] INSULIN ASPART (NovoLOG) [NovoLOG (formulary)] 0 unit SQ ACHS each 07/04/22 [Rx] Lidocaine 5% Patch [Lidoderm 5% Patch] 1 patch TOPICAL DAILY patch 07/04/22 [Rx] traMADol HCl [Ultram] 50 mg PO QID PRN #4 tab 07/04/22 [Rx] Follow up Appointment(s)/Referral(s): Nathanael Ellis MD [Primary Care Provider] - 1-2 days Albertina Pedraza NPC [Nurse Practitioner] - 07/14/22 2:45 pm Gianfranco Pascal MD [STAFF PHYSICIAN] - Marcos Hills MD [STAFF PHYSICIAN] - 1 Week (Follow up for sprain for AC joint right sided secondary to fall ) Activity/Diet/Wound Care/Special Instructions: Patient will be transferred to [facility] for subacute rehab He will need frequent monitoring of his blood counts secondary to diagnosis of MDS , He will require transfusions as needed Patient has an appointment scheduled at oncology office for repeat CBC on 07/14 at 245 pm. May wear arm sling for comfort, he does not have to Nonweightbearing right arm Patient to follow up with Dr. Hills in the office on discharge Continue with pain medication as scheduled Follow up with your transfer machine operator on discharge Follow up with primary care provider regarding resuming xarelto Discharge Disposition: TRANSFER TO SNF/ECF
== END 2022-07-05 15:22 | DRG 812 ==
LOC: EC 16:17 → 5NMEDONC 19:29 → 3SCARD 21:04 → OBSVTOIN 07-01 08:38
PROVIDERS: ADMIT Hospitalist; ATTEND Hospitalist
PROC: 3E0234Z Introduction of Serum, Toxoid and Vaccine into Muscle, Percutaneous Approach (ICD-10-PCS; principal; 2022-06-29)
PROC: 30233N1 Transfusion of Nonautologous Red Blood Cells into Peripheral Vein, Percutaneous Approach (ICD-10-PCS; 2022-06-29)
PROC: 4B02XSZ Measurement of Cardiac Pacemaker, External Approach (ICD-10-PCS; 2022-06-30)
DX: D46.9 Myelodysplastic syndrome, unspecified (principal); D61.818 Other pancytopenia; G93.89 Other specified disorders of brain; I11.9 Hypertensive heart disease without heart failure; E11.9 Type 2 diabetes mellitus without complications; E78.5 Hyperlipidemia, unspecified; I48.91 Unspecified atrial fibrillation; F32.A Depression, unspecified; G31.9 Degenerative disease of nervous system, unspecified; J32.8 Other chronic sinusitis; Z51.5 Encounter for palliative care; Z23 Encounter for immunization; Z20.822 Contact with and (suspected) exposure to COVID-19; S41.112A Laceration without foreign body of left upper arm, initial encounter; S00.81XA Abrasion of other part of head, initial encounter; S61.411A Laceration without foreign body of right hand, initial encounter; S43.61XA Sprain of right sternoclavicular joint, initial encounter; I25.10 Atherosclerotic heart disease of native coronary artery without angina pectoris; G47.30 Sleep apnea, unspecified; Z79.85 Long-term (current) use of injectable non-insulin antidiabetic drugs; Z79.899 Other long term (current) drug therapy; Z86.73 Personal history of transient ischemic attack (TIA), and cerebral infarction without residual deficits; Z95.1 Presence of aortocoronary bypass graft; Z95.0 Presence of cardiac pacemaker; Z87.891 Personal history of nicotine dependence; Z71.3 Dietary counseling and surveillance; W10.9XXA Fall (on) (from) unspecified stairs and steps, initial encounter; Y92.009 Unspecified place in unspecified non-institutional (private) residence as the place of occurrence of the external cause; Y93.01 Activity, walking, marching and hiking
CPT/HCPCS: 36415; 70450; 71046; 72125; 80048; 80053; 81001; 83036; 85025; 85027; 86850; 86900; 86901; 86920; 87635; 90715; 93005; 96360; 96361; 99285

== ENCOUNTER 2022-07-13 21:30 | Emergency (ER) | payer MEDICARE ==
--- NOTE | 2022-07-13 22:09 | ED ---
General Adult HPI - General Chief complaint: Recheck/Abnormal Lab/Rx Stated complaint: Low hemoglobin Time Seen by Provider: 07/13/22 21:36 Source: patient, EMS Mode of arrival: EMS Limitations: no limitations - History of Present Illness Initial comments: This patient is a 77-year-old man with history of myelodysplastic syndrome. Patient states she had routine labs done earlier today for this condition, and residential personnel inform him that his hemoglobin was low and they sent him here with the understanding he was to have a transfusion. Patient denies any new symptoms. He has not noted passing any blood or dark tarry stools. He is not experiencing chest pain, dyspnea, diaphoresis, palpitations, lightheadedness or syncope. The patient states that he had transfusion probably about one week ago for the same condition. Onset/Timin -: days(s) Severity scale (1-10): 0 Improves with: none Worsens with: none Associated Symptoms: denies other symptoms Treatments Prior to Arrival: none - Related Data Home Medications Medication Instructions Recorded Confirmed Metoprolol Succinate [Toprol XL] 25 mg PO TID@0800,1400,2100 05/06/21 07/14/22 Simvastatin [Zocor] 40 mg PO DAILY@1700 05/06/21 07/14/22 Dulaglutide [Trulicity] 0.75 mg SQ DENNIS@0800 12/09/21 07/14/22 Furosemide [Lasix] 40 mg PO DAILY@0800 06/29/22 07/14/22 Potassium Gluconate [Potassium 99 mg PO DAILY@1700 06/29/22 07/14/22 Gluconate ER] Acetaminophen [Tylenol 8 Hour] 650 mg PO Q4H PRN 07/14/22 07/14/22 Famotidine [Pepcid] 20 mg PO DAILY@1700 07/14/22 07/14/22 HYDROcodone/APAP 7.5-325MG [Climax 1 tab PO Q6H PRN 07/14/22 07/14/22 7.5-325] INSULIN ASPART (NovoLOG) [NovoLOG See Protocol SQ ACHS 07/14/22 07/14/22 (formulary)] Lidocaine 5% Patch [Lidoderm 5% 1 patch TRANSDERM DAILY@0800 07/14/22 07/14/22 Patch] Magnesium Hydroxide [Milk of 7,200 mg PO Q48H PRN 07/14/22 07/14/22 Magnesia Concentrate] Na Phos,M-B/Na Phos,Di-Ba [Fleet 133 ml RECTAL DAILY PRN 07/14/22 07/14/22 Adult] bisacodyL [Dulcolax] 10 mg RECTAL DAILY PRN 07/14/22 07/14/22 traMADol HCl [Ultram] 50 mg PO QID PRN 07/14/22 07/14/22 Allergies Allergy/AdvReac Type Severity Reaction Status Date / Time No Known Allergies Allergy Verified 07/14/22 07:16 Review of Systems ROS Statement: Those systems with pertinent positive or pertinent negative responses have been documented in the HPI. ROS Other: All systems not noted in ROS Statement are negative. Constitutional: Denies: fever, chills Respiratory: Denies: cough, dyspnea Cardiovascular: Denies: chest pain, palpitations, orthopnea, edema, syncope Gastrointestinal: Denies: abdominal pain, nausea, vomiting, diarrhea, constipation Genitourinary: Denies: dysuria, hematuria Musculoskeletal: Denies: back pain Skin: Denies: rash Neurological: Denies: headache, weakness Hematological/Lymphatic: Denies: easy bleeding Past Medical History Past Medical History: Coronary Artery Disease (CAD), CVA/TIA, Hyperlipidemia, Sl eep Apnea/CPAP/BIPAP Additional Past Medical History / Comment(s): MDS History of Any Multi-Drug Resistant Organisms: None Reported Past Surgical History: Coronary Bypass/CABG, Orthopedic Surgery, Pacemaker, Tonsillectomy Additional Past Surgical History / Comment(s): left shoulder surgery, CABG 15 yr ago, evelyn cataracts Past Anesthesia/Blood Transfusion Reactions: No Reported Reaction Type of Cardiac Device: Permanent Pacemaker Device Placement Date:: Past Psychological History: No Psychological Hx Reported Smoking Status: Former smoker Past Alcohol Use History: Rare Additional Past Alcohol Use History / Comment(s): quit smoking about 15 yrs ago Past Drug Use History: None Reported - Past Family History Mother Family Medical History: No Reported History General Exam Limitations: no limitations General appearance: alert, in no apparent distress Head exam: Present: atraumatic, normocephalic Eye exam: Present: normal appearance. Absent: scleral icterus, conjunctival injection Neck exam: Present: normal inspection Respiratory exam: Present: normal lung sounds bilaterally. Absent: respiratory distress, wheezes, rales, rhonchi, stridor Cardiovascular Exam: Present: regular rate, normal rhythm, normal heart sounds. Absent: systolic murmur, diastolic murmur, rubs, gallop GI/Abdominal exam: Present: soft. Absent: distended, tenderness, guarding, rebound, rigid, mass Extremities exam: Present: normal inspection, normal capillary refill. Absent: pedal edema, calf tenderness Back exam: Present: normal inspection. Absent: CVA tenderness (R), CVA te nderness (L) Neurological exam: Present: alert Skin exam: Present: warm, dry, intact, normal color. Absent: rash Course Vital Signs 07/13/22 07/14/22 07/14/22 21:48 01:00 01:03 Temperature 98.2 F Pulse Rate 60 64 Respiratory 18 18 Rate Blood Pressure 143/46 129/50 O2 Sat by Pulse 100 98 Oximetry 07/14/22 07/14/22 07/14/22 01:36 01:48 01:50 Temperature 97.7 F 97.9 F 98.7 F Pulse Rate 64 64 62 Respiratory 16 16 16 Rate Blood Pressure 127/47 135/58 132/61 O2 Sat by Pulse 99 Oximetry 07/14/22 07/14/22 07/14/22 02:03 02:08 03:05 Temperature 97.9 F 98 F 98.2 F Pulse Rate 64 66 64 Respiratory 16 16 16 Rate Blood Pressure 135/62 134/58 125/49 O2 Sat by Pulse 97 98 Oximetry 07/14/22 07/14/22 07/14/22 04:02 04:13 04:30 Temperature 98.1 F 98.2 F 98.2 F Pulse Rate 62 64 60 Respiratory 16 16 16 Rate Blood Pressure 130/51 126/55 127/62 O2 Sat by Pulse 99 Oximetry 07/14/22 07/14/22 07/14/22 04:41 05:01 05:02 Temperature 97.9 F 97.8 F 97.8 F Pulse Rate 62 62 62 Respiratory 16 16 16 Rate Blood Pressure 142/59 136/60 136/60 O2 Sat by Pulse Oximetry 07/14/22 07/14/22 07/14/22 06:12 07:01 07:08 Temperature 97.8 F 97.8 F Pulse Rate 63 64 62 Respiratory 16 16 16 Rate Blood Pressure 148/70 143/70 O2 Sat by Pulse 99 99 Oximetry 07/14/22 08:16 Temperature Pulse Rate 80 Respiratory 18 Rate Blood Pressure 132/64 O2 Sat by Pulse 97 Oximetry Medical Decision Making - Medical Decision Making This patient is 77-year-old man sent here from extended care facility due to worsening of his anemia. Per the request of his hand brush filler he is transfused 2 units packed red blood cells. Following this he is feeling well and he is discharged back to the facility. - Lab Data Result diagrams: 07/13/22 21:58 07/13/22 21:58 Lab Results 07/13/22 07/13/22 07/13/22 Range/Units 21:58 21:58 21:58 WBC 2.1 L (3.8-10.6) k/uL RBC 2.39 L (4.30-5.90) m/uL Hgb 7.5 L (13.0-17.5) gm/dL Hct 23.4 L (39.0-53.0) % MCV 97.7 (80.0-100.0) fL MCH 31.2 (25.0-35.0) pg MCHC 31.9 (31.0-37.0) g/dL RDW 20.0 H (11.5-15.5) % Plt Count 75 L (150-450) k/uL MPV 10.9 Neutrophils % (Manual) 43 % Lymphocytes % (Manual) 47 % Monocytes % (Manual) 10 % Neutrophils # (Manual) 0.90 L (1.3-7.7) k/uL Lymphocytes # (Manual) 0.99 L (1.0-4.8) k/uL Monocytes # (Manual) 0.21 (0-1.0) k/uL Nucleated RBCs 0 (0-0) /100 WBC Manual Slide Review Performed Polychromasia Present Hypochromasia Marked Poikilocytosis Marked Anisocytosis Slight Macrocytosis Moderate Sodium 140 (137-145) mmol/L Potassium 3.6 (3.5-5.1) mmol/L Chloride 103 (98-107) mmol/L Carbon Dioxide 32 H (22-30) mmol/L Anion Gap 5 mmol/L BUN 20 (9-20) mg/dL Creatinine 0.74 (0.66-1.25) mg/dL Est GFR (CKD-EPI)AfAm >90 (>60 ml/min/1.73 sqM) Est GFR (CKD-EPI)NonAf >90 (>60 ml/min/1.73 sqM) Glucose 153 H (74-99) mg/dL Calcium 8.5 (8.4-10.2) mg/dL Total Bilirubin 2.7 H (0.2-1.3) mg/dL AST 26 (17-59) U/L ALT 12 (4-49) U/L Alkaline Phosphatase 93 (38-126) U/L Total Protein 6.7 (6.3-8.2) g/dL Albumin 3.5 (3.5-5.0) g/dL Blood Type A Positive Blood Type Recheck A Pos Bld Type Recheck Status No Antibody Screen NEGATIVE Crossmatch See Detail Spec Expiration Date 07/16/20222357 Critical Care Time Critical Care Time: Yes (30 minutes) Disposition Clinical Impression: Anemia, MDS (myelodysplastic syndrome) Disposition: HOME SELF-CARE Condition: Fair Instructions (If sedation given, give patient instructions): Myelodysplastic Syndromes (ED), Anemia (ED) Is patient prescribed a controlled substance at d/c from ED?: No Referrals: Nathanael Ellis MD [Primary Care Provider] - 1-2 days
[2022-07-13 22:22] LABS: Anisocytosis Slight; HCT 23.4 % (39.0-53.0); HGB 7.5 gm/dL (13.0-17.5); Hypochromasia Marked; MCH 31.2 pg (25.0-35.0); MCHC 31.9 g/dL (31.0-37.0); MCV 97.7 fL (80.0-100.0); Macrocytosis Moderate; Mean Platelet Volume 10.9; Poikilocytosis Marked; RBC 2.39 m/uL (4.30-5.90); WBC 2.1 k/uL (3.8-10.6)
[2022-07-13 22:52] LABS: ALT 12 U/L (4-49); African American GFR (CKD) >90 (>60 ml/min/1.73 sqM); Albumin 3.5 g/dL (3.5-5.0); Anion Gap 5 mmol/L; Blood Urea Nitrogen 20 mg/dL (9-20); Calcium 8.5 mg/dL (8.4-10.2); Carbon Dioxide 32 mmol/L (22-30); Chloride 103 mmol/L (98-107); Glucose 153 mg/dL (74-99); Non-African American GFR(CKD) >90 (>60 ml/min/1.73 sqM); Sodium 140 mmol/L (137-145); Total Bilirubin 2.7 mg/dL (0.2-1.3); Total Protein 6.7 g/dL (6.3-8.2)
[2022-07-13 22:57] LABS: Platelet Count 75 k/uL (150-450)
[2022-07-13 23:04] LABS: Lymphocytes # (M) 0.99 k/uL (1.0-4.8); Monocytes # (M) 0.21 k/uL (0-1.0); Neutrophils % (M) 43 %; Nucleated Red Blood Cells 0 /100 WBC (0-0); Total Cells Counted 100
[2022-07-13 23:05] LABS: Polychromasia Present
[2022-07-14 00:34] LABS: Potassium 3.6 mmol/L (3.5-5.1)
[2022-07-14 00:35] LABS: AST 26 U/L (17-59); Alkaline Phosphatase 93 U/L (38-126)
[2022-07-14 05:03] VITALS: TEMP 97.8
[2022-07-14 08:17] VITALS: BP 132/64; PULSE 80; RESP 18
== END 2022-07-14 08:16 | disposition home or self-care (01) ==
LOC: EC 21:30
DX: D64.9 Anemia, unspecified (principal); I25.10 Atherosclerotic heart disease of native coronary artery without angina pectoris; G45.9 Transient cerebral ischemic attack, unspecified; E78.5 Hyperlipidemia, unspecified; G47.30 Sleep apnea, unspecified; Z87.891 Personal history of nicotine dependence; Z79.899 Other long term (current) drug therapy
CPT/HCPCS: 36430 ×2; 99285 ×2; 36415; 86900; 86901; 80053; 85025; 86850; 86920; P9016; 99291